=== PATIENT | female | born 1955 | race Caucasian/White ===

== ENCOUNTER 2019-04-09 09:06 | Outpatient (CLI) | payer MEDICARE, SELFPAY ==
[2019-04-09 10:10] LABS: Hematocrit 44.8 % (37.0-47.0); Hemoglobin 14.5 g/dL (12.0-15.0); Mean Corpuscular HGB Conc 32.4 g/dl (32-36); Mean Corpuscular Hemoglobin 30.5 pg (26-34); Mean Corpuscular Volume 94.1 fl (80-100); Mean Platelet Volume 10.5 fl (7.4-10.4); Platelet Count Result 283 k/mm3 (150-375); Red Blood Count 4.76 M/mm3 (4.2-5.4); Red Cell Distribution Width 13.2 % (11.5-14.5); White Blood Count 9.5 K/mm3 (4.5-10.0)
[2019-04-09 10:20] LABS: Alanine Aminotransferase 20 U/L (4-35); Albumin Level 4.4 g/dL (3.5-5.1); Alkaline Phosphatase 93 U/L (38-126); Aspartate Amino Transferase 25 U/L (14-36); Blood Urea Nitrogen 13 mg/dL (7-17); Calcium 9.4 mg/dL (8.4-10.2); Carbon Dioxide 31 mmol/L (22-30); Chloride 97 mmol/L (98-107); Cholesterol 122 mg/dL (0-200); Estimated Glomerular Filt Rate > 60; Glucose 106 mg/dL (65-105); HDL Direct 41 mg/dL; Sodium 137 mmol/L (137-145); Triglycerides 164 mg/dL (<150)
[2019-04-09 10:32] LABS: LDL Cholesterol Direct 63 mg/dL
[2019-04-09 10:35] LABS: Creatinine Urine 104.1 mg/dL
[2019-04-09 10:38] LABS: Hemoglobin A1C 6.6 % (<5.7)
[2019-04-09 10:54] LABS: MALB Creatinine Ratio < 5.8 mg/g (0-30); Microalbumin Urine Random < 6.0 mg/L (0-16.7)
== END 2019-04-09 09:07 | disposition home or self-care (01) ==
PROVIDERS: PCP Family Medicine; Visit Provider Family Medicine
DX: E11.9 Type 2 diabetes mellitus without complications (principal); E78.2 Mixed hyperlipidemia; I10 Essential (primary) hypertension
CPT/HCPCS: 36415; 80053; 80061; 82043; 83036; 85027

== ENCOUNTER 2019-07-25 10:35 | Outpatient (CLI) | payer MEDICARE, SELFPAY ==
[2019-07-25 11:52] LABS: Free T4 Free Thyroxine 1.21 ng/mL (0.78-2.19)
== END 2019-07-25 10:36 | disposition home or self-care (01) ==
LOC: ANHLAB 10:36
PROVIDERS: PCP Family Medicine; Visit Provider Family Medicine
DX: E04.9 Nontoxic goiter, unspecified (principal); E03.9 Hypothyroidism, unspecified
CPT/HCPCS: 36415; 84439; 84443

== ENCOUNTER 2020-01-09 11:31 | Outpatient (CLI) | payer MEDICARE, SELFPAY ==
[2020-01-09 12:15] LABS: Anion Gap 7 mmol/L (8-16); Blood Urea Nitrogen 11 mg/dL (7-17); Calcium 8.9 mg/dL (8.4-10.2); Carbon Dioxide 33 mmol/L (22-30); Chloride 103 mmol/L (98-107); Estimated Glomerular Filt Rate > 60; Glucose 147 mg/dL (65-105); Potassium 3.4 mmol/L (3.4-5.0); Sodium 143 mmol/L (137-145)
[2020-01-09 12:36] LABS: Hemoglobin A1C 6.1 % (<5.7)
[2020-01-09 12:54] LABS: Free T4 Free Thyroxine 1.04 ng/mL (0.78-2.19)
== END 2020-01-09 11:32 | disposition home or self-care (01) ==
PROVIDERS: PCP Family Medicine; Visit Provider Physician Assistant
DX: R73.03 Prediabetes (principal); E03.9 Hypothyroidism, unspecified; I10 Essential (primary) hypertension
CPT/HCPCS: 36415; 80048; 83036; 84439; 84443

== ENCOUNTER 2020-03-20 09:13 | Outpatient (CLI) | payer MEDICARE, SELFPAY ==
[2020-03-20 10:36] LABS: Free T4 Free Thyroxine 1.05 ng/mL (0.78-2.19)
== END 2020-03-20 09:14 | disposition home or self-care (01) ==
PROVIDERS: PCP Family Medicine; Visit Provider Family Medicine
DX: E04.9 Nontoxic goiter, unspecified (principal); E03.9 Hypothyroidism, unspecified
CPT/HCPCS: 36415; 84439; 84443

== ENCOUNTER → 2020-04-17 10:44 | Outpatient (CLI) | payer MEDICARE, SELFPAY ==
--- NOTE | ~2020-04-17 | MM_ITS ---
EXAMINATION: MM screening linh BI w [facility] HISTORY: Screening mammogram TECHNIQUE: Craniocaudal and mediolateral oblique 3-D tomosynthesis images were obtained and synthetic 2-D images were generated. CAD analysis was submitted and interpreted. COMPARISON: 08/02/2018 bilateral digital screening mammogram BREAST PARENCHYMAL COMPOSITION: There are scattered areas of fibroglandular density. FINDINGS: There is no evidence of suspicious mass, calcification, or architectural distortion to sugg est malignancy in either breast. There has been no suspicious interval change. IMPRESSION: 1. No mammographic evidence of malignancy. 2. Recommend routine screening mammography in one year. BI-RADS Category 2: Benign finding(s). Reviewed, dictated and finalized at location A. [facility]
--- NOTE | ~2020-04-17 | DEXA_ITS ---
Bone Density Report Name: Naomy Cano Age: 64 Sex: Female Ethnicity: White Date of : 1955 Indication: postmenopausal; screening for osteoporosis; height loss; hysterectomy; Referring Provider: CHELITA WAGNER Study: Bone densitometry was performed. Exam Date: April 17, 2020 Accession number: [id number] Bone Density: Region BMD T-score Z-score Classification AP Spine (L1, L2, L3) 1.256 2.2 4.0 Normal Femoral Neck (Left) 0.814 -0.3 1.3 Normal Total Hip (Left) 0.922 -0.2 1.2 Normal Femoral Neck (Right) 0.945 0.9 2.5 Normal Total Hip (Right) 0.919 -0.2 1.1 Normal Total Hip Mean 0.921 -0.2 1.2 Normal World Health Organization criteria for BMD impression classify patients as: Normal (T-score at or above -1.0), Osteopenia (T-score between -1.0 and -2.5), or Osteoporosis (T-score at or below -2.5). 10-year Fracture Risk: FRAX not reported because: All T-scores for Spine Total, Hip Total, Femoral Neck at or above -1.0 Clinical Information Provided by Patient: Has used the following medications: Calcium Has the following medical conditions: Hysterectomy Patient maximum height was 66 Menopause Age: 48 No regular weight bearing exercise Drinks caffeinated beverages Onset of menses at age 11 Number of children 1 Impression: The patient has normal bone mass. Discussion: BONE DENSITY IS ABOVE THE MINIMUM DESIRABLE LEVEL AT ALL SKELETAL SITES TESTED. This patient?s bone mineral density is above the minimum desirable level (T-score -1.0 or better) at all sites measured. The patient should follow a healthful lifestyle (good nutrition with adequate calcium and vitamin D, and appropriate weight-bearing exercise). Follow-Up: Consider repeating this study in 5 years or sooner if there is some new clinical indication. Reported by: RUI on 04/17/2020 11:24:00 AM. Reviewed, dictated and finalized at location AFarzane[facility] DELACRUZ
== END ==
PROVIDERS: PCP Family Medicine; Visit Provider Family Medicine
DX: Z12.31 Encounter for screening mammogram for malignant neoplasm of breast (principal); Z78.0 Asymptomatic menopausal state
CPT/HCPCS: 77063; 77067; 77080

== ENCOUNTER 2020-08-04 19:43 | Emergency (ER) | payer MEDICARE, SELFPAY ==
[2020-08-04 19:47] VITALS: BP 136/75; PULSE 88; RESP 20; TEMP 36.4; O2SAT 98
--- NOTE | 2020-08-04 20:35 | ED.ALLEREA ---
HPI - Allergic Reaction General Chief complaint: Allergic Reaction Stated complaint: swelling throat Time Seen by Provider: 08/04/20 20:31 Source: patient Mode of arrival: ambulatory Limitations: no limitations History of Present Illness HPI narrative: Patient is a 65-year-old female complaining of I think my throat swelling that started about an hour prior to arrival. Patient states that she was at a winery prior, ate some toast ravioli and had 1 beer. Patient denies any food bolus obstruction. Patient states that she was able to eat and swallow without difficulty. Denies lip, tongue, or facial swelling. Patient denies any shortness of breath. Patient denies any new medications, food, or hygienic products. Denies any rash or extremity swelling. Denies any similar events in the past. Related Data Home Medications Medication Instructions Recorded Confirmed aspirin 81 mg tablet,delayed 81 mg PO DAILY 04/10/19 07/16/20 release calcium carbonate 600 mg calcium 600 mg PO BID 04/10/19 07/16/20 (1,500 mg) tablet iodine 150 mcg tablet mcg PO 04/10/19 07/16/20 risedronate 35 mg tablet 35 mg PO WEEKLY 04/10/19 07/16/20 Allergies Allergy/AdvReac Type Severity Reaction Status Date / Time Iodinated Contrast Media Allergy Severe Hives, RED Verified 08/04/20 20:52 FACE Review of Systems Review of Systems: All systems reviewed & are unremarkable except as noted in HPI and below Constitutional: Constitutional: Denies body ache(s), Denies chills, Denies excessive sweating, Denies fatigue, Denies fever(s), Denies headache(s), Denies lethargy, Denies malaise, Denies weakness and Denies weight loss Eyes: Eyes: Denies blurry vision, Denies change in vision and Denies loss of vision ENT: Denies dizziness, Denies ear discharge, Denies headache(s), Denies lip swelling, Denies epistaxis, Denies nasal congestion, Denies neck pain and Denies tongue swelling Cardiovascular: Cardiovascular: Denies chest pain, Denies chest pain at rest, Denies chest pain with activity, Denies diaphoresis, Denies rapid heart rate, Denies edema, Denies irregular heart rhythm, Denies lightheadedness, Denies palpitations, Denies dyspnea and Denies dyspnea on exertion Respiratory: Respiratory: Denies chest congestion, Denies cough, Denies hemoptysis, Denies dyspnea and Denies dyspnea on exertion Gastrointestinal: Gastrointestinal: Denies abdominal pain, Denies melena, Denies hematochezia, Denies diarrhea, Denies nausea, Denies vomiting and Denies hematemesis Musculoskeletal: Musculoskeletal: Denies abnormal gait, Denies deformity, Denies joint swelling, Denies limited range of motion, Denies neck pain and Denies numbness Neurologic: Denies Abnormal speech present, Denies abnormal gait, Denies confusion, Denies dizziness, Denies headache(s), Denies focal weakness, Denies loss of vision, Denies numbness, Denies Other visual disturbances, Denies Sensory deficit (Neuro) and Denies weakness Psychiatric: Psychiatric: Denies confusion, Denies depression, Denies auditory hallucinations, Denies homicidal ideation and Denies suicidal ideation Endocrine: Endocrine: Denies cold intolerance, Denies excessive sweating, Denies fatigue, Denies heat intolerance and Denies palpitations Hematologic/Lymphatic: Hematologic/Lymphatic: Denies easy bleeding and Denies easy bruising Allergic/Immunologic: Allergic/Immunologic: Denies lip swelling, Denies throat swelling and Denies tongue swelling PMFSH Past Medical History Medical History Benign hypertension Borderline diabetes mellitus BALDO (generalized anxiety disorder) Hypothyroidism (acquired) Mixed hyperlipidemia Family History Family History Father Diabetes mellitus Other Family history of malignant neoplasm Hypertension Social History Social History (Reviewed 08/04/20 @ 20:37 by Aleks Mendoza
[2020-08-04] MEDS: diphenhydrAMINE HCl INJ 50 MG/ML VIAL 25 MG IV PUSH (21:24)
[2020-08-04] MEDS: methylPREDNISolone SOD SUCC 125 MG VIAL IV PUSH (21:24)
[2020-08-04] MEDS: FAMOTIDINE 20 MG/2 ML VIAL IV PUSH (21:24)
[2020-08-04 21:25] VITALS: BP 102/83; PULSE 70; RESP 18; O2SAT 95
[2020-08-05 00:03] VITALS: BP 109/59; PULSE 72; RESP 18; O2SAT 96
== END 2020-08-05 00:26 | disposition home or self-care (01) ==
PROVIDERS: Emergency Provider Emergency Medicine; PCP Family Medicine
DX: T78.40XA Allergy, unspecified, initial encounter (principal); I10 Essential (primary) hypertension; R73.03 Prediabetes; E03.9 Hypothyroidism, unspecified; E78.2 Mixed hyperlipidemia; F41.1 Generalized anxiety disorder; Z79.82 Long term (current) use of aspirin
CPT/HCPCS: 96374; 96375; 99284; J1200; J2930

== ENCOUNTER 2020-08-08 07:01 | Outpatient (CLI) | payer MEDICARE, SELFPAY ==
[2020-08-08 07:42] LABS: Basophils Percent Auto 0.4 % (0.2-1.2); Eosinophils Absolute Auto 0.1 K/mm3 (0-0.3); Eosinophils Percent Auto 0.5 % (0-4.4); Hematocrit 47.1 % (37.0-47.0); Hemoglobin 15.4 g/dL (12.0-15.0); Immature Granulocyte Absolute 0.03 K/mm3 (0.00-0.031); Immature Granulocyte Percent A 0.3 % (0-0.5); Lymphocytes Absolute Auto 2.84 K/mm3 (0.9-3.2); Lymphocytes Percent Auto 30.1 % (18.3-44.2); Mean Corpuscular HGB Conc 32.7 g/dl (32-36); Mean Corpuscular Volume 91.6 fl (80-100); Mean Platelet Volume 9.8 fl (7.4-10.4); Monocytes Absolute Auto 0.8 K/mm3 (0.1-0.6); Monocytes Percent Auto 8.5 % (2.6-8.5); Neutrophils Absolute Auto 5.7 K/mm3 (1.3-6.7); Neutrophils Percent Auto 60.2 % (45.5-73.1); Platelet Count Result 279 k/mm3 (150-375); Red Blood Count 5.14 M/mm3 (4.2-5.4); Red Cell Distribution Width 14.2 % (11.5-14.5); White Blood Count 9.4 K/mm3 (4.5-10.0)
[2020-08-08 07:50] LABS: Hemoglobin A1C 5.7 % (<5.7)
[2020-08-08 07:57] LABS: Alanine Aminotransferase 21 U/L (4-35); Albumin Level 4.3 g/dL (3.5-5.1); Alkaline Phosphatase 82 U/L (38-126); Anion Gap 12 mmol/L (8-16); Aspartate Amino Transferase 29 U/L (14-36); Bilirubin,Total 1.7 mg/dL (0.2-1.3); Blood Urea Nitrogen 14 mg/dL (7-17); Calcium 9.4 mg/dL (8.4-10.2); Carbon Dioxide 31 mmol/L (22-30); Chloride 97 mmol/L (98-107); Cholesterol 122 mg/dL (0-200); Estimated Glomerular Filt Rate 50; Glucose 127 mg/dL (65-105); HDL Direct 44 mg/dL; Potassium 2.7 mmol/L (3.4-5.0); Sodium 140 mmol/L (137-145); Triglycerides 168 mg/dL (<150)
[2020-08-08 08:02] LABS: LDL Cholesterol Direct 42 mg/dL
== END 2020-08-08 07:02 | disposition home or self-care (01) ==
PROVIDERS: PCP Family Medicine; Visit Provider Physician Assistant
DX: R73.03 Prediabetes (principal); E03.9 Hypothyroidism, unspecified; E78.2 Mixed hyperlipidemia; I10 Essential (primary) hypertension
CPT/HCPCS: 36415; 80053; 80061; 83036; 84439; 84443; 85025

== ENCOUNTER 2020-10-02 01:14 | Day surgery (SDC) | payer MEDICARE, SELFPAY ==
[2020-09-17 14:37] VITALS: BMI 29.9
[2020-10-02 10:24] VITALS: BP 156/75; PULSE 87; RESP 18; TEMP 36.5; O2SAT 97; BMI 29.5
[2020-10-02] MEDS: LACTATED RINGERS 1,000 ML 30 ML IV CONT (10:46)
--- NOTE | 2020-10-02 10:47 | WPDANESEPPF ---
Anes - Initial Pre Proc Eval Procedure: Operation Date: 10/02/20 11:00 Proposed Procedures p Esophagogastroduodenoscopy - Brando Waldron MD Date/Time: 10/02/20 10:47 Surgeon: Brando Waldron MD Pre Op Diagnosis: dysphagia Patient Data Age: 65 Gender: F Height: 1.63 m Weight: 78.2 kg Last Vital Signs Temp 36.5 C 10/02/20 10:24 Pulse 87 10/02/20 10:24 Resp 18 10/02/20 10:24 BP 156/75 H 10/02/20 10:24 Pulse Ox 97 10/02/20 10:24 Allergies Allergy/AdvReac Type Severity Reaction Status Date / Time Iodinated Contrast Media Allergy Severe Hives, RED Verified 10/02/20 10:37 FACE Home Medications Medication Instructions Recorded Confirmed Type aspirin 81 mg tablet,delayed 81 mg PO DAILY 04/10/19 09/17/20 History release iodine 150 mcg tablet 150 mcg PO DAILY 04/10/19 09/17/20 History levothyroxine 100 mcg tablet 100 mcg PO DAILY #102 tablet 06/23/20 09/17/20 Rx esomeprazole magnesium 20 mg 20 mg PO DAILY #90 cap 06/27/20 09/17/20 Rx capsule,delayed release alprazolam 0.25 mg tablet 0.25 mg PO BID PRN #60 tablet 07/16/20 09/17/20 Rx bupropion HCl 200 mg tablet,12 hr 200 mg PO BID #60 tablet 07/16/20 09/17/20 Rx sustained-release lisinopril 20 mg tablet 20 mg PO DAILY #90 tablet 07/24/20 09/17/20 Rx atorvastatin 20 mg tablet 20 mg PO DAILY #90 tablet 08/02/20 09/17/20 Rx metformin 500 mg tablet 500 mg PO BID #180 tablet 08/02/20 09/17/20 Rx famotidine [Pepcid] 20 mg PO BID #10 tablet 08/04/20 09/17/20 Rx hydrochlorothiazide 25 mg tablet 25 mg PO DAILY #90 tablet 09/05/20 09/17/20 Rx potassium chloride 20 mEq 20 meq PO BID #60 tablet 09/09/20 09/17/20 Rx tablet,extended release Patient hx anesthesia problems: none Family hx anesthesia problems: none PMFSH Past Medical History Medical History Benign hypertension Borderline diabetes mellitus BALDO (generalized anxiety disorder) Hypothyroidism (acquired) Mixed hyperlipidemia Surgical History Surgical History History of abdominoplasty History of appendectomy History of cholecystectomy History of hysterectomy History of tubal ligation Family History Family History Father Diabetes mellitus Other Family history of malignant neoplasm Hypertension Social History Social History Social History: Smoking packs per day: 0.5 Smoking cigarettes per day: 10.0 Years smoked: 10 Smoking pack-years: 5.00 Smoking status: Former smoker Tobacco type: cigarettes Second hand tobacco smoke exposure: No Smoking end date: 03/07/13 Alcohol intake: current Drinks per week: 1 Alcohol use details: Twice a month Substance use: never Substance use type: does not use Living arrangements: alone Gender identity (if verbalized by the patient): Female Spiritual care concerns: No Anes - Eval Final PreProcedure Day of Procedure 10/02/20 10:47 Patient weight: overweight Heart: regular rate and rhythm Lungs: clear to auscultation Airway: Mallampati scale class II Neurological: alert and oriented Last oral intake: >/= 8 hours ASA classification: III Emergent: no Anesthetic plan: proceed Anesthesia type and monitoring: general GIVS and standard monitoring Informed Consent: The patient's anesthetic plan and its attendant risks and benefits were discussed with the patient/family/POA. Questions were solicited and answers provided to the satisfaction of the patient/family/POA.
[2020-10-02 10:48] LABS: Glucose Point of Care 93 mg/dl (65-105)
--- NOTE | 2020-10-02 10:53 | WPDGICN ---
Assessment and Plan Assessment and plan (1) Dysphagia: Code(s): R13.10 - Dysphagia, unspecified Status: Acute Assessment and Plan: patient had episode of difficulty swallowing for which she was seen in the emergency room. She was treated for an allergic reaction. Other etiologies for difficulty swallowing cannot be excluded. Although patient has had no problems prior or since. She reports having been treated for acid reflux with Nexium for about 5 years. Plan is for EGD to assess more thoroughly. Further recommendations will be given after endoscopy. GI Consult Note Consult date/time: 10/02/20 10:53 HPI: Naomy Cano is a 65 year old female Presents for EGD. Patient reports an episode where she abruptly was unable to eat or swallow. For this reason she presented the emergency room it was presumed she had an allergic reaction and was treated with steroids. She did improving has been able to eat swallow subsequently. She reports having had acid reflux for 5 years. She has been treated with Nexium for that period of time. She has had no prior difficulty swallowing. She has had no weight loss. She has no bleeding. During her episode of difficulty swallowing she was not eating. She did not even try to eat. She was able to swallow her saliva. She is referred today for EGD to exclude esophageal narrowing. Review of Systems Review of Systems: All systems reviewed & are unremarkable except as noted in HPI and below PMFSH Past Medical History Medical History Benign hypertension Borderline diabetes mellitus BALDO (generalized anxiety disorder) Hypothyroidism (acquired) Mixed hyperlipidemia Surgical History Surgical History History of abdominoplasty History of appendectomy History of cholecystectomy History of hysterectomy History of tubal ligation Family History Family History Father Diabetes mellitus Other Family history of malignant neoplasm Hypertension Social History Social History Social History: Smoking packs per day: 0.5 Smoking cigarettes per day: 10.0 Years smoked: 10 Smoking pack-years: 5.00 Smoking status: Former smoker Tobacco type: cigarettes Second hand tobacco smoke exposure: No Smoking end date: 03/07/13 Alcohol intake: current Drinks per week: 1 Alcohol use details: Twice a month Substance use: never Substance use type: does not use Living arrangements: alone Gender identity (if verbalized by the patient): Female Spiritual care concerns: No Meds Home Medications and Allergies Home Medications Medication Instructions Recorded Confirmed Type aspirin 81 mg tablet,delayed 81 mg PO DAILY 04/10/19 10/02/20 History release iodine 150 mcg tablet 150 mcg PO DAILY 04/10/19 10/02/20 History levothyroxine 100 mcg tablet 100 mcg PO DAILY #102 tablet 06/23/20 10/02/20 Rx esomeprazole magnesium 20 mg 20 mg PO DAILY #90 cap 06/27/20 10/02/20 Rx capsule,delayed release alprazolam 0.25 mg tablet 0.25 mg PO BID PRN #60 tablet 07/16/20 10/02/20 Rx bupropion HCl 200 mg tablet,12 hr 200 mg PO BID #60 tablet 07/16/20 10/02/20 Rx sustained-release lisinopril 20 mg tablet 20 mg PO DAILY #90 tablet 07/24/20 10/02/20 Rx atorvastatin 20 mg tablet 20 mg PO DAILY #90 tablet 08/02/20 10/02/20 Rx metformin 500 mg tablet 500 mg PO BID #180 tablet 08/02/20 10/02/20 Rx famotidine [Pepcid] 20 mg PO BID #10 tablet 08/04/20 10/02/20 Rx hydrochlorothiazide 25 mg tablet 25 mg PO DAILY #90 tablet 09/05/20 10/02/20 Rx potassium chloride 20 mEq 20 meq PO BID #60 tablet 09/09/20 10/02/20 Rx tablet,extended release Allergies Allergy/AdvReac Type Severity Reaction Status Date / Time Iodinated Contrast Media Allergy Sever
[2020-10-02 11:07] VITALS: BP 124/70; PULSE 73; RESP 18; O2SAT 98
[2020-10-02 11:17] VITALS: BP 139/73; PULSE 70; RESP 18; O2SAT 99
[2020-10-02 11:27] VITALS: BP 106/73; PULSE 72; RESP 18; O2SAT 100
== END 2020-10-02 11:44 | disposition home or self-care (01) ==
PROVIDERS: PCP Family Medicine; Visit Provider Internal Medicine Gastroenterology
PROC: 0DJ08ZZ Inspection of Upper Intestinal Tract, Via Natural or Artificial Opening Endoscopic (ICD-10-PCS; CPT 43235; principal; 2020-10-02 11:00)
DX: R13.10 Dysphagia, unspecified (principal); K21.9 Gastro-esophageal reflux disease without esophagitis; I10 Essential (primary) hypertension; E03.9 Hypothyroidism, unspecified; R73.03 Prediabetes; E78.2 Mixed hyperlipidemia; F41.1 Generalized anxiety disorder; Z87.891 Personal history of nicotine dependence; Z79.82 Long term (current) use of aspirin; Z79.84 Long term (current) use of oral hypoglycemic drugs
CPT/HCPCS: 43235; 82948; J7120

== ENCOUNTER 2020-10-16 11:18 | Outpatient (CLI) | payer MEDICARE, SELFPAY ==
[2020-10-16 13:34] LABS: Anion Gap 11 mmol/L (8-16); Blood Urea Nitrogen 14 mg/dL (7-17); Calcium 9.5 mg/dL (8.4-10.2); Carbon Dioxide 28 mmol/L (22-30); Chloride 103 mmol/L (98-107); Estimated Glomerular Filt Rate 50; Glucose 117 mg/dL (65-110); Potassium 3.8 mmol/L (3.4-5.0); Sodium 142 mmol/L (137-145)
== END 2020-10-16 11:19 | disposition home or self-care (01) ==
LOC: ANHLAB 11:20
PROVIDERS: PCP Family Medicine; Visit Provider Physician Assistant
DX: E87.6 Hypokalemia (principal)
CPT/HCPCS: 36415; 80048

== ENCOUNTER 2021-01-04 10:15 | Emergency (ER) | payer MEDICARE, SELFPAY ==
[2021-01-04 10:27] VITALS: BP 115/72; PULSE 99; RESP 18; TEMP 37.1; O2SAT 100
--- NOTE | 2021-01-04 10:49 | ED.EYEPROB ---
HPI - Eye Problem General Chief complaint: Eye Problems Stated complaint: Eye pain Source: patient and RN notes reviewed Limitations: no limitations History of Present Illness HPI Narrative: The patient, who wears eyeglasses and not contacts, presents with eye discomfort. Patient states she has 1 day history of left eye redness and discharge after poking it with a mascara pencil yesterday. No photophobia, foreign body, purulent discharge.; Symptoms are mild, most noticeable with rubbing or blinking. Vital signs are stable with acuity VA 20/50;patient advised follow-up with eye doctor if not improved Related Data Home Medications Medication Instructions Recorded Confirmed aspirin 81 mg tablet,delayed 81 mg PO DAILY 04/10/19 01/04/21 release iodine 150 mcg tablet 150 mcg PO DAILY 04/10/19 01/04/21 Allergies Allergy/AdvReac Type Severity Reaction Status Date / Time Iodinated Contrast Media Allergy Severe Hives, RED Verified 01/04/21 10:34 FACE Review of Systems Review of Systems: General/Constitutional: No weight loss,fever Eyes: REPORTS redness,discharge Ears/Nose/Throat: No: Epistaxis,ear discharge Respiratory: Denies: Hemoptysis Gastrointestinal: No Vomiting, Bleeding-rectal Skin: No Lumps, eruption Neurologic: No Focal Weakness,Sz Hematologic: Denies: Petechiae/Purpura Psychiatric: No: Suicida ideationl All Other Systems: Reviewed and Negative [facility] Past Medical History Medical History Benign hypertension Borderline diabetes mellitus BALDO (generalized anxiety disorder) Hypothyroidism (acquired) Mixed hyperlipidemia Surgical History Surgical History History of abdominoplasty History of appendectomy History of cholecystectomy History of hysterectomy History of tubal ligation Family History Family History Father Diabetes mellitus Other Family history of malignant neoplasm Hypertension Social History Social History (Updated 10/30/20 @ 10:14 by Albina Hussein) Social History: Smoking packs per day: 0.5 Smoking cigarettes per day: 10.0 Years smoked: 10 Smoking pack-years: 5.00 Smoking status: Former smoker Tobacco type: cigarettes Second hand tobacco smoke exposure: No Smoking end date: 03/07/13 Alcohol intake: current Drinks per week: 1 Alcohol use details: Twice a month Substance use: never Substance use type: does not use Gender identity (if verbalized by the patient): Female Sexual Orientation (if Verbalized by the Patient): Straight or Heterosexual Spiritual care concerns: No Comments At time of signature, agree with nursing past medical, surgical, social and family history. There is no relevant family history pertinent to the presenting complaint Exam Narrative: General Appearance: Well appearing, Well nourished, No distress EYE: PERRLA, [id number] normal, EOMI, Lens normal, Normal corneas; small fluorescein uptake 9 o'clock, anterior chamber deep, Conjunctiva injection, no FB seen Ears: External ear normal, Auditory canal normal Nose: Normal nose, Nares clear Mouth/Throat: Normal appearing, Normal lips, Supple, No adenopathy Respiratory: Airway patent, No respiratory distress Skin: Warm, Dry Neurological: A&O x3, CN II-X intact Psychiatric: Normal mood, Normal affect Course Vital Signs Vital signs: Vital Signs Temperature 98.7 F 01/04/21 10:27 Pulse Rate 99 01/04/21 10:27 Respiratory Rate 18 01/04/21 10:27 Blood Pressure 115/72 01/04/21 10:27 Pulse Oximetry 100 01/04/21 10:27 Temperature 98.7 F 01/04/21 10:27 Pulse Rate 99 01/04/21 10:27 Respiratory Rate 18 01/04/21 10:27 Blood Pressure 115/72 01/04/21 10:27 Pulse Oximetry 100 01/04/21 10:27 Discharge Plan Discharge Clinical Impression:
== END 2021-01-04 11:02 | disposition home or self-care (01) ==
PROVIDERS: Emergency Provider Emergency Medicine; PCP Family Medicine
DX: S05.02XA Injury of conjunctiva and corneal abrasion without foreign body, left eye, initial encounter (principal); W22.8XXA Striking against or struck by other objects, initial encounter; I10 Essential (primary) hypertension; E03.9 Hypothyroidism, unspecified; E78.2 Mixed hyperlipidemia; Z79.82 Long term (current) use of aspirin; R73.03 Prediabetes; F41.1 Generalized anxiety disorder
CPT/HCPCS: 99213; A9270; G0463

== ENCOUNTER 2021-05-05 07:14 | Outpatient (CLI) | payer MEDICARE, SELFPAY ==
[2021-05-05 07:51] LABS: Basophils Percent Auto 0.5 % (0.2-1.2); Eosinophils Absolute Auto 0.1 K/mm3 (0-0.3); Eosinophils Percent Auto 1.2 % (0-4.4); Hematocrit 45.1 % (37.0-47.0); Hemoglobin 14.8 g/dL (12.0-15.0); Immature Granulocyte Absolute 0.02 K/mm3 (0.00-0.031); Immature Granulocyte Percent A 0.2 % (0-0.5); Lymphocytes Absolute Auto 2.72 K/mm3 (0.9-3.2); Lymphocytes Percent Auto 31.8 % (18.3-44.2); Mean Corpuscular HGB Conc 32.8 g/dl (32-36); Mean Corpuscular Hemoglobin 30.8 pg (26-34); Mean Platelet Volume 9.9 fl (7.4-10.4); Monocytes Absolute Auto 0.6 K/mm3 (0.1-0.6); Neutrophils Absolute Auto 5.1 K/mm3 (1.3-6.7); Neutrophils Percent Auto 59.3 % (45.5-73.1); Platelet Count Result 257 k/mm3 (150-375); Red Cell Distribution Width 12.3 % (11.5-14.5); White Blood Count 8.6 K/mm3 (4.5-10.0)
[2021-05-05 08:13] LABS: Alanine Aminotransferase 15 U/L (4-35); Albumin Level 4.4 g/dL (3.5-5.1); Alkaline Phosphatase 91 U/L (38-126); Anion Gap 7 mmol/L (8-16); Aspartate Amino Transferase 22 U/L (14-36); Bilirubin,Total 0.7 mg/dL (0.2-1.3); Blood Urea Nitrogen 11 mg/dL (7-17); Carbon Dioxide 29 mmol/L (22-30); Chloride 101 mmol/L (98-107); Cholesterol 132 mg/dL (0-200); Estimated Glomerular Filt Rate 55; Glucose 97 mg/dL (65-110); HDL Direct 48 mg/dL; Potassium 3.8 mmol/L (3.4-5.0); Sodium 137 mmol/L (137-145); Triglycerides 111 mg/dL (<150)
[2021-05-05 08:40] LABS: Free T4 Free Thyroxine 1.36 ng/mL (0.78-2.19)
[2021-05-05 08:41] LABS: Hemoglobin A1C 5.4 % (<5.7)
[2021-05-05 08:54] LABS: LDL Cholesterol Direct 57 mg/dL; Thyroid Stimulating Hormone 0.924 uIU/mL (0.465-4.680); Total Triiodothyronine (T3) 1.17 NG/ML (0.97-1.69)
== END 2021-05-05 07:15 | disposition home or self-care (01) ==
PROVIDERS: PCP Family Medicine; Visit Provider Nurse Practitioner Gerontology
DX: E03.9 Hypothyroidism, unspecified (principal); R73.03 Prediabetes; E78.2 Mixed hyperlipidemia; I10 Essential (primary) hypertension
CPT/HCPCS: 36415; 80053; 80061; 83036; 84439; 84443; 84480; 85025

== ENCOUNTER → 2021-06-17 11:16 | Outpatient (CLI) | payer MEDICARE, SELFPAY ==
--- NOTE | ~2021-06-17 | MM_ITS ---
EXAMINATION: MM screening linh BI w [facility] HISTORY: Screening mammogram TECHNIQUE: Craniocaudal and mediolateral oblique 3-D tomosynthesis images were obtained and synthetic 2-D images were generated. CAD analysis was submitted and interpreted. COMPARISON: 04/17/2020, 08/02/2018 bilateral screening mammogram examinations BREAST PARENCHYMAL COMPOSITION: There are scattered areas of fibroglandular density. FINDINGS: Scattered bilateral benign calcifications are again present. There is no evidence of suspic ious mass, calcification, or architectural distortion to suggest malignancy in either breast. There h as been no suspicious interval change. IMPRESSION: 1. No mammographic evidence of malignancy. 2. Recommend routine screening mammography in one year. BI-RADS Category 2: Benign finding(s). Reviewed, dictated and finalized at location A.
== END ==
PROVIDERS: PCP Family Medicine; Visit Provider Family Medicine
DX: Z12.31 Encounter for screening mammogram for malignant neoplasm of breast (principal)
CPT/HCPCS: 77063; 77067

== ENCOUNTER 2021-07-01 15:37 | Emergency (ER) | payer MEDICARE, SELFPAY ==
--- NOTE | ~2021-07-01 | CT_ITS ---
EXAMINATION: CT abdomen pelvis wo con DATE: 07/01/2021 17:55 INDICATION: Diffuse abdominal pain, diaphoresis TECHNIQUE: Computed tomography (CT) of the abdomen and pelvis was performed without intravenous contr ast. The dose-length product (DLP) was 603.93 mGy-cm. Automated exposure control and iterative recons truction technique were employed. COMPARISON: 08/08/2018 FINDINGS: The lung bases are clear. The heart size is normal. The liver, spleen, pancreas, and adrena l glands are normal. The gallbladder is absent. The kidneys are unremarkable. There is calcified athe rosclerosis of the aorta and many of the other arteries. No pathologically enlarged abdominal or pelv ic lymph nodes are identified. There is no free intraperitoneal gas or evidence of bowel obstruction. Colonic diverticulosis is present without evidence of diverticulitis. There is severe lumbar spondyl osis. A fat-containing umbilical hernia is noted. IMPRESSION: 1. No CT correlate for the patient's symptoms. Reviewed, dictated and finalized at location F.
[2021-07-01 15:46] VITALS: BP 136/112; PULSE 80; RESP 17; TEMP 36.4; O2SAT 98
[2021-07-01 16:01] LABS: Basophils Percent Auto 0.3 % (0.2-1.2); Eosinophils Absolute Auto 0.1 K/mm3 (0-0.3); Eosinophils Percent Auto 0.7 % (0-4.4); Hematocrit 43.7 % (37.0-47.0); Hemoglobin 14.2 g/dL (12.0-15.0); Immature Granulocyte Absolute 0.02 K/mm3 (0.00-0.031); Immature Granulocyte Percent A 0.2 % (0-0.5); Lymphocytes Absolute Auto 2.66 K/mm3 (0.9-3.2); Lymphocytes Percent Auto 30.6 % (18.3-44.2); Mean Corpuscular HGB Conc 32.5 g/dl (32-36); Mean Corpuscular Hemoglobin 31.1 pg (26-34); Mean Corpuscular Volume 95.6 fl (80-100); Mean Platelet Volume 9.7 fl (7.4-10.4); Monocytes Absolute Auto 0.7 K/mm3 (0.1-0.6); Monocytes Percent Auto 8.5 % (2.6-8.5); Neutrophils Absolute Auto 5.2 K/mm3 (1.3-6.7); Neutrophils Percent Auto 59.7 % (45.5-73.1); Platelet Count Result 282 k/mm3 (150-375); Red Blood Count 4.57 M/mm3 (4.2-5.4); Red Cell Distribution Width 13.5 % (11.5-14.5); White Blood Count 8.7 K/mm3 (4.5-10.0)
[2021-07-01 16:15] LABS: Alanine Aminotransferase 33 U/L (4-35); Albumin Level 4.4 g/dL (3.5-5.1); Alkaline Phosphatase 107 U/L (38-126); Anion Gap 8 mmol/L (8-16); Aspartate Amino Transferase 111 U/L (14-36); Bilirubin,Total 0.9 mg/dL (0.2-1.3); Blood Urea Nitrogen 13 mg/dL (7-17); Calcium 8.6 mg/dL (8.4-10.2); Carbon Dioxide 35 mmol/L (22-30); Chloride 97 mmol/L (98-107); Estimated CRCL calculation 47 ml/min; Estimated Glomerular Filt Rate 55; Glucose 107 mg/dL (65-110); Lipase 75 U/L (23-300); Sodium 140 mmol/L (137-145)
--- NOTE | 2021-07-01 17:13 | PC.NURSE ---
pt denies any pain at present. denies n/v/d
[2021-07-01 17:14] VITALS: BP 154/75; PULSE 77; RESP 16; O2SAT 98
[2021-07-01 17:46] LABS: Add Urine Microscopic? YES; Appearance Urine Cloudy (Clear); Bacteria Urine Trace /hpf; Bilirubin Urine Negative (Negative); Blood Urine Negative (Negative); Color Urine Yellow (Yellow); Glucose Urine UA Negative (Negative); Ketones Urine Negative (Negative); Leukocyte Esterase Ur Trace LEU/UL (Negative); Mucus Urine Rare /lpf; Nitrate Urine Negative (Negative); Protein Urine Negative (Negative); RBC Urine 0-2 /hpf (0-2); Specific Grav Ur 1.018 (1.001-1.035); Squamous Epithelial Cell Urine Many /hpf (Few)
--- NOTE | 2021-07-01 19:00 | PC.NURSE ---
assumed care of pt. at this time. report from MEY marquez
--- NOTE | 2021-07-01 19:48 | ED.ABDPAIN ---
HPI - Abdominal Pain General Chief Complaint: Abdominal Pain Stated Complaint: abd pain Time Seen by Provider: 07/01/21 17:29 History of Present Illness HPI narrative: Patient is a 65-year-old female who presents ER with lower abdominal pain. Intermittent over the last couple months but sudden increase this evening. Worse with pressure. Has history of diverticulitis this feels slightly different. No fevers or chills or sweats. Normal stool and urine function. No alleviating factors. Related Data Home Medications Medication Instructions Recorded Confirmed aspirin 81 mg tablet,delayed 81 mg PO DAILY 04/10/19 05/14/21 release iodine 150 mcg tablet 150 mcg PO DAILY 04/10/19 05/14/21 Allergies Allergy/AdvReac Type Severity Reaction Status Date / Time Iodinated Contrast Media Allergy Severe Hives, RED Verified 07/01/21 17:13 FACE Review of Systems Review of Systems: All systems reviewed & are unremarkable except as noted in HPI and below Constitutional: Constitutional: Denies chills, Denies fever(s) and Denies weakness ENT: Denies nasal congestion and Denies sore throat Cardiovascular: Cardiovascular: Denies chest pain, Denies rapid heart rate and Denies radiating jaw, neck or arm pain Respiratory: Respiratory: Denies cough, Denies dyspnea and Denies wheezing Gastrointestinal: Gastrointestinal: Reports abdominal pain, Denies nausea and Denies vomiting Genitourinary: Genitourinary: Denies nocturia, Denies dysuria and Denies flank pain PMFSH Past Medical History Medical History Benign hypertension Borderline diabetes mellitus BALDO (generalized anxiety disorder) Hypothyroidism (acquired) Mixed hyperlipidemia Surgical History Surgical History History of abdominoplasty History of appendectomy History of cholecystectomy History of hysterectomy History of tubal ligation Family History Family History Father Diabetes mellitus Other Family history of malignant neoplasm Hypertension Social History Social History (Updated 05/14/21 @ 10:07 by Albina Hussein) Social History: Smoking packs per day: 0.5 Smoking cigarettes per day: 10.0 Years smoked: 10 Smoking pack-years: 5.00 Smoking status: Former smoker Tobacco type: cigarettes Second hand tobacco smoke exposure: No Smoking end date: 03/07/13 Alcohol intake: current Alcohol use details: Twice a month Substance use: never Substance use type: does not use 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 HEAD: Normocephalic, atraumatic. EYES: PERRL and EOMI. NECK: Supple. CHEST: Clear to auscultation. No respiratory distress. HEART: Regular rate and rhythm. Normal peripheral pulses. ABDOMEN: Soft, tender palpation bilateral lower quadrants without guarding or rebound, nondistended. EXTREMITIES: Normal range of motion. No edema. SKIN: Warm, dry, no rash. NEURO: Alert and oriented x3. PSYCH: Normal mood and affect. Course Course Emergency Course: Patient informed of results. Discharge home. Vital Signs Vital signs: Vital Signs Temperature 97.6 F 07/01/21 15:46 Pulse Rate 80 07/01/21 15:46 Respiratory Rate 17 07/01/21 15:46 Blood Pressure 136/112 H 07/01/21 15:46 Pulse Oximetry 98 07/01/21 15:46 Temperature 97.6 F 07/01/21 15:46 Pulse Rate 77 07/01/21 17:14 Respiratory Rate 16 07/01/21 17:14 Blood Pressure 154/75 H 07/01/21 17:14 Pulse Oximetry 98 07/01/21 17:14 MDM - Abdominal Pain Lab Data Result diagrams: 07/01/21 15:54
[2021-07-01 19:51] VITALS: BP 119/62; PULSE 73; RESP 18; TEMP 36.6; O2SAT 98
== END 2021-07-01 20:00 | disposition home or self-care (01) ==
PROVIDERS: Emergency Medicine; Emergency Provider Emergency Medicine; PCP Family Medicine
DX: R10.30 Lower abdominal pain, unspecified (principal); I10 Essential (primary) hypertension; R73.03 Prediabetes; E03.9 Hypothyroidism, unspecified; E78.2 Mixed hyperlipidemia; F41.1 Generalized anxiety disorder; Z87.891 Personal history of nicotine dependence; Z79.82 Long term (current) use of aspirin; Z79.84 Long term (current) use of oral hypoglycemic drugs
CPT/HCPCS: 36415; 74176; 80053; 81001; 83690; 85025; 99284

== ENCOUNTER 2021-08-12 00:11 | Day surgery (SDC) | payer MEDICARE, SELFPAY ==
--- NOTE | 2021-07-30 14:05 | PC.NURSE ---
Report to the Outpatient Waiting Room, entrance under the green pavilion located off [facility], at time __0900 on date _08/12/21 . OR Time: __1100 . - You and your visitor will be asked a series of questions to screen for COVID 19 for your protection. - Only one visitor is allowed at this time. - The patient visitor is requested to leave or wait in car when not with patient. - A mask is required within the hospital. Patients may have clear liquids (water, carbonated beverages, clear teas, apple juice) until 3 hours prior to surgery with a maximum of 20 ounces. - No food from midnight until time of surgery - Infants may have breast milk until 4 hours before surgery, infant formula 6 hours prior to surgery. - Children will be allowed to drink immediately following surgery. If applicable, please bring a bottle or sippy cup to assist with drinking. Juice, water, soda, and popsicles are readily available. For infants on formula, please bring formula the day of surgery. Pacifiers are allowed. Take the following medications with a SIP of water the morning of surgery: __BUPROPION,LEVOTHYROXINE Medications to discontinue per physician NONE Date to take last dose Please no make-up, nail armenian, hairspray, perfume, deodorant, or body powder the day of surgery. No jewelry (including any body piercings) or valuables the day of surgery, leave them at home. Please take a shower or bath the night before, or the morning of, surgery with an antibacterial soap. Wear comfortable, loose fitting clothing. Children are encouraged to wear pajamas. - Jewelry must be removed prior to entering the operating room. Rings and piercings that are not removed may be cut off. - The hospital will not accept responsibility for valuables. - Please leave all valuables, including medications, at home the day of surgery. [employer]IB[employer] SHOWER MORNING OF SURGERY If you are going home after surgery, a licensed bookmobile driver must drive you home. - NO public transportation without another adult. - We recommend that an adult stay with you for 24 hours following discharge. - We also recommend that you do not drive, make important decision, drink alcoholic beverages, or take any drugs that were not prescribed by your health care provider for at least 24 hours after your discharge time. For Pediatric surgeries, we recommend two adults accompany the child home (only one inside the building at this time). Follow any additional instructions given to you from your surgeon. If you or anyone in your household have experienced Covid symptoms in the past week, please notify your surgeon or the nurse liaison at the phone number below for possible testing. Telephone instructions given to _PATIENT and asked if any additional questions and then verbalized understanding. Patient advised to call surgeon office or pre surgery nurse liaison [phone] if any additional questions.
[2021-07-30 14:11] VITALS: BMI 26.6
--- NOTE | 2021-08-11 13:35 | WPDANESEPPF ---
Anes - Initial Pre Proc Eval Procedure: Operation Date: 08/12/21 09:30 Proposed Procedures p Repair Periumbilical Incisional Hernia with Mesh - Hema Guzmán MD Date/Time: 08/11/21 13:35 Surgeon: Hema Guzmán MD Pre Op Diagnosis: Periumbilical Incisional Hernia Patient Data Age: 66 Gender: F Height: 1.65 m Weight: 72.6 kg Allergies Allergy/AdvReac Type Severity Reaction Status Date / Time Iodinated Contrast Media Allergy Severe Hives, RED Verified 08/12/21 07:34 FACE Home Medications Medication Instructions Recorded Confirmed Type aspirin 81 mg tablet,delayed 81 mg PO DAILY 04/10/19 08/12/21 History release (Adult Low Dose Aspirin) bupropion HCl 200 mg tablet,12 hr See Rx Instructions .Route 05/14/21 08/12/21 Rx sustained-release .COMPLEX #60 tabs esomeprazole magnesium 20 mg 20 mg PO DAILY #90 caps 05/14/21 08/12/21 Rx capsule,delayed release levothyroxine 100 mcg tablet See Rx Instructions .Route 05/14/21 08/12/21 Rx .COMPLEX #102 tabs lisinopril 20 1 tablet PO DAILY #90 tabs 05/14/21 08/12/21 Rx mg-hydrochlorothiazide 12.5 mg tablet atorvastatin 20 mg tablet See Rx Instructions .Route 07/07/21 08/12/21 Rx .COMPLEX #90 tabs metformin 500 mg tablet See Rx Instructions .Route 07/07/21 08/12/21 Rx .COMPLEX #180 tabs potassium chloride 10 mEq 10 meq PO DAILY #90 caps 07/08/21 08/12/21 Rx capsule,extended release Patient hx anesthesia problems: none Family hx anesthesia problems: none Results Review: All pre-operative results and documents have been reviewed as part of the pre-operative evaluation. [facility] Past Medical History Medical History (Updated 08/11/21 @ 13:36 by Terence Dumont MD) Benign hypertension Borderline diabetes mellitus BALDO (generalized anxiety disorder) Hypothyroidism (acquired) Mixed hyperlipidemia ROBERT (obstructive sleep apnea) Surgical History Surgical History History of abdominoplasty History of appendectomy History of cholecystectomy History of hysterectomy History of tubal ligation Family History Family History Father Diabetes mellitus Other Family history of malignant neoplasm Hypertension Social History Social History Social History: Smoking packs per day: 0.5 Smoking cigarettes per day: 10.0 Years smoked: 10 Smoking pack-years: 5.00 Smoking status: Former smoker Tobacco type: cigarettes Second hand tobacco smoke exposure: No Smoking end date: 03/07/13 Alcohol intake: current Drinks per week: 1 Alcohol use details: Twice a month Substance use: never Substance use type: does not use Living arrangements: alone Gender identity (if verbalized by the patient): Female Sexual Orientation (if Verbalized by the Patient): Straight or Heterosexual Spiritual care concerns: No Anes - Eval Final PreProcedure Day of Procedure 08/11/21 13:35 Patient weight: overweight Heart: regular rate and rhythm Lungs: clear to auscultation Airway: Mallampati scale class II Neurological: alert and oriented Last oral intake: >/= 8 hours ASA classification: III Emergent: no Anesthetic plan: proceed Anesthesia type and monitoring: general GIVS and LMA and standard monitoring Results Review: All pre-operative results and documents have been reviewed as part of the pre-operative evaluation. Informed Consent: The patient's anesthetic plan and its attendant risks and benefits were discussed with the patient/family/POA. Questions were solicited and answers provided to the satisfaction of the patient/family/POA.
[2021-08-12 07:24] VITALS: BP 104/87; PULSE 89; RESP 16; TEMP 36.5; O2SAT 100
[2021-08-12] MEDS: ACETAMINOPHEN 500 MG TABLET 1000 MG PO (07:38)
[2021-08-12] MEDS: LACTATED RINGERS 1,000 ML 30 ML IV CONT ×2 (07:50→10:06)
[2021-08-12] MEDS: KETOROLAC 15 MG/ML VIAL (*BKC) IV PUSH (07:51)
[2021-08-12 07:57] LABS: Glucose Point of Care 97 mg/dl (65-105)
--- NOTE | 2021-08-12 08:33 | WPDHPUPDATE1 ---
History and Physical Update Update Date/Time: 08/12/21 08:33 History and Physical has been reviewed, including an updated exam of the patient. There are NO changes in the patient's condition. Risks, benefits, and alternatives have been discussed and questions answered. Patient agrees to proceed with procedure.
[2021-08-12] MEDS: ceFAZolin 2 GM/D5W 50 ML 2 GM/50 ML BAG IVPB (08:40)
[2021-08-12] MEDS: LIDO 1%/EPINEPHRINE/PF 1:200,000 30 ML VIAL XX (08:51)
[2021-08-12 10:10] VITALS: BP 114/53; PULSE 76; RESP 12; TEMP 35.9; O2SAT 100
--- NOTE | 2021-08-12 10:14 | W.PM.PROC2 ---
Procedure Note - Detailed Date of Procedure 08/12/21 Pre-op Diagnosis Incisional Hernia Post-op Diagnosis Same Procedure Performed Repair incisional hernia with 6.[address] underlay mesh Surgeon Hema Guzmán MD Systems Software Specialist Luisana HERRON Anesthesia General (G IV S) and Local (1% lidocaine with epinephrine) Indications Patient had an abdominal plasty many years ago. She has developed a bulge in the area of her umbilical reconstruction. It has been very tender. She is taken to surgery now for repair of this incisional hernia. Findings The hernia was more to the left of the umbilicus than anticipated from her exam. It was also larger being almost 2 cm in diameter. Description of Procedure Patient was checked in the preoperative holding area. She was then taken to surgery and anesthesia was introduced. The abdomen was prepped and draped. Local was infiltrated in the previous periumbilical scar on the lower half of the umbilicus. Incision was then made only on this lower half and in the old scar. We dissected into the subcutaneous. I removed some subcutaneous fat but initially it was somewhat difficult to find the hernia sac. The sac was actually more to the patient's left and not at the umbilicus. Once I discovered this, I infiltrated additional local just lateral to the upper aspect of the current incision in a transverse orientation. I made an incision in this direction to better expose the hernia. Later in the dissection, it was evident that I would need the same type of extension on the patient's right side. Local was infiltrated there and that incision was made as well. Cautery was used for hemostasis. The hernia sac itself was dissected. I dissected the umbilical skin off the fascia. I was then able to expose the hernia defect circumferentially. I infiltrated additional local and then excised the hernia sac. I then undermined the subcutaneous all around the hernia defect for better placement of transfascial sutures. I placed a finger in the abdomen checking for any additional hernias or adhesions to the anterior abdominal wall. None were found. I chose the 6.[address] underlay patch. It was placed in the defect in position symmetrically. Cranial and caudal transfascial sutures of 0 Ethibond were placed initially. These were both tied down in such a manner that they advanced the edges of the hernia defect towards 1 another. I then placed right and left lateral transfascial sutures of 0 Ethibond to secure the fascia to the mesh in both these directions. Each of these was tied. Finally I closed the hernia defect with vertical mattress sutures of 0 Ethibond. Each of these incorporated a bit of mesh as well. This completed the fascial repair with mesh. It appeared to be quite secure. I infiltrated additional local all around the suturing that had been done. We then excised some hernia sac from the subcutaneous and discarded it. I sutured the umbilical skin to the fascia with 3-0 Vicryl suture. Some sub cutaneous 3-0 Vicryl sutures were then placed. The skin was closed loosely with interrupted 3-0 and 4-0 Vicryl subcuticular suture. Finally the skin was closed with a running 4-0 Monocryl skin suture. The wound was dressed with Exofin surgical adhesive. The patient was awakened and taken to outpatient surgery in good condition. Sponge and needle counts were correct x2. Implants 6.[address] mesh Estimated Blood Loss -5 Drains No Packing No Pathology None sent Complications No immediate complications Condition Stable Disposition Same day [facility] Billing Surgery - Charge Forward: Surgery Billing (Repair incisional hernia with mesh)
[2021-08-12 10:40] VITALS: BP 114/49; PULSE 72; RESP 16
[2021-08-12 10:40] LABS: Glucose Point of Care 123 mg/dl (65-105)
[2021-08-12] MEDS: oxyCODONE HCL (*CRX) 5 MG TAB IR PO (11:01)
[2021-08-12 11:10] VITALS: BP 125/53; PULSE 75; RESP 20
== END 2021-08-12 11:38 | disposition home or self-care (01) ==
PROVIDERS: PCP Family Medicine; Visit Provider Surgery
PROC: (CPT 49560; principal; 2021-08-12 09:30)
DX: K43.2 Incisional hernia without obstruction or gangrene (principal); I10 Essential (primary) hypertension; E78.2 Mixed hyperlipidemia; E03.9 Hypothyroidism, unspecified; G47.33 Obstructive sleep apnea (adult) (pediatric); R73.03 Prediabetes; F41.1 Generalized anxiety disorder; Z79.82 Long term (current) use of aspirin; Z79.84 Long term (current) use of oral hypoglycemic drugs; Z87.891 Personal history of nicotine dependence
CPT/HCPCS: 49560; 49568; 82948; A9270; C1781; J0690; J1100; J1885; J2250; J2270; J2405; J2704; J7120

== ENCOUNTER 2021-10-18 18:16 | Emergency (ER) | payer MEDICARE, SELFPAY ==
--- NOTE | 2021-10-18 18:19 | ED.GENADULT ---
HPI - General Adult General Chief complaint: Upper Respiratory Infection Stated complaint: Sore Throat,Bilateral Ear Irritation Time Seen by Provider: 10/18/21 18:19 Source: patient Mode of arrival: ambulatory Limitations: no limitations History of Present Illness HPI narrative: 66-year-old female patient presents to the [facility] with complaints of sore throat and bilateral ear pain that started when she woke up this morning. Denies fevers, body aches or chills. Patient states she has had a slight cough but denies any runny nose or congestion. Denies any chest pain or shortness of breath. Denies any nausea, vomiting or diarrhea. Patient requesting to be tested for strep. Patient does have primary dose of COVID vaccines as well as boosters Related Data Home Medications Medication Instructions Recorded Confirmed aspirin 81 mg tablet,delayed 81 mg PO DAILY 04/10/19 10/18/21 release (Adult Low Dose Aspirin) Allergies Allergy/AdvReac Type Severity Reaction Status Date / Time Iodinated Contrast Media Allergy Severe Hives, RED Verified 10/18/21 18:19 FACE Review of Systems Review of Systems: CONSTITUTIONAL: Denies fever, chills, or sweats. EYES: Denies visual changes, redness, or discharge. ENT: Denies rhinorrhea, congestion, positive sore throat, and bilateral otalgia. CARDIOVASCULAR: Denies chest pain, palpitations, or edema. RESPIRATORY: Positive mild cough, denies dyspnea. GASTROINTESTINAL: Denies abdominal pain, nausea, vomiting, or diarrhea. GENITOURINARY: Denies dysuria or hematuria. SKIN: Denies rash or itching. MUSCULOSKELETAL: Denies back pain, joint pain, or myalgia. NEUROLOGIC: Denies headache, numbness, or weakness. PSYCHIATRIC: Denies anxiety or depression. [facility] Past Medical History Medical History Benign hypertension Borderline diabetes mellitus BALDO (generalized anxiety disorder) Hypothyroidism (acquired) Mixed hyperlipidemia ROBERT (obstructive sleep apnea) Surgical History Surgical History H/O umbilical hernia repair 08/12/21 Repair incisional hernia with 6.[address] underlay mesh History of abdominoplasty History of appendectomy History of cholecystectomy History of hysterectomy History of tubal ligation Family History Family History Father Diabetes mellitus Other Family history of malignant neoplasm Hypertension Social History Social History Social History: Smoking packs per day: 0.5 Smoking cigarettes per day: 10.0 Years smoked: 10 Smoking pack-years: 5.00 Smoking status: Former smoker Tobacco type: cigarettes Second hand tobacco smoke exposure: No Smoking end date: 03/07/13 Alcohol intake: current Drinks per week: 1 Alcohol use details: Twice a month Substance use: never Substance use type: does not use Gender identity (if verbalized by the patient): Female Sexual Orientation (if Verbalized by the Patient): Straight or Heterosexual Spiritual care concerns: No Comments At the time of my signature I agree with nursing past medical history, surgical, social, and family history. There is no relevant family history pertinent to the presenting complaint. Exam Narrative: GENERAL: Well-appearing, well-nourished, and in no acute distress. HEAD: Normocephalic, atraumatic. EYES: PERRLA and EOMI. ENT: Nares clear, no rhinorrhea or epistaxis. Mucous membranes moist. Posterior pharynx with no erythema, tonsillar lodgment, exudates or lesions present. Bilateral TMs are clear with no erythema or foreign bodies in the canal. NECK: Supple. No lymphadenopathy CHEST: Clear to auscultation. No respiratory distress. HEART: Regular rate and rhythm. No murmur heard. Normal peripheral pulses. ABDOMEN: Soft, nontender
[2021-10-18 18:24] VITALS: BP 105/61; PULSE 97; RESP 24; TEMP 37.2; O2SAT 99
== END 2021-10-18 18:43 | disposition home or self-care (01) ==
PROVIDERS: Emergency Provider Nurse Practitioner Family; PCP Family Medicine
DX: U07.1 COVID-19 (principal); Z87.891 Personal history of nicotine dependence; E03.9 Hypothyroidism, unspecified; E78.2 Mixed hyperlipidemia; G47.33 Obstructive sleep apnea (adult) (pediatric); R73.03 Prediabetes; I10 Essential (primary) hypertension
CPT/HCPCS: 87081; 87426; 87880; 99213; C9803; G0463

== ENCOUNTER 2021-12-05 07:26 | Emergency (ER) | payer MEDICARE, SELFPAY ==
--- NOTE | ~2021-12-05 | CT_ITS ---
EXAMINATION: CT brain wo con DATE: 12/05/2021 09:44 INDICATION: Head injury. TECHNIQUE: Computed tomography (CT) of the head was performed without intravenous contrast. The mA wa s adjusted according to patient size. Iterative reconstruction technique was employed. The dose-lengt h product was 605.33 mGy-cm. COMPARISON: None FINDINGS: There is no intracranial hemorrhage, acute infarction, or abnormal intracranial mass lesion . The ventricles are normal in size. There is a left frontal scalp hematoma. The orbits are normal. T he paranasal sinuses are clear. The mastoid air cells are normal. IMPRESSION: 1. Normal brain. Reviewed, dictated and finalized at location A. IMPRESSION: 1. Normal brain.
--- NOTE | ~2021-12-05 | CT_ITS ---
EXAMINATION: CT cervical spine wo con DATE: 12/05/2021 09:44 INDICATION: Head injury. TECHNIQUE: Computed tomography (CT) of the cervical spine was performed without intravenous contrast. Automated exposure control and iterative reconstruction technique were employed. The dose-length pro duct was 345.82 mGy-cm. COMPARISON: None FINDINGS: There is 8 degrees dextrocurvature of cervicothoracic spine. There is kyphosis of cervical spine. There is 2 mm retrolisthesis of C5 on C6 and C6 on C7. Vertebral body heights are normal. Ther e is mildly decreased disc height at C4-C5 and severely decreased disc height at C5-C6 and C6-C7. The following disc levels are specifically discussed: C2-C3: There is no uncovertebral joint osteoarthritis. There is severe right facet joint osteoarthrit is. There is mild right neural foraminal stenosis. There is no central canal stenosis. C3-C4: There is no uncovertebral joint osteoarthritis. There is moderate right and severe left facet joint osteoarthritis. There is mild left neural foraminal stenosis. There is mild central canal steno sis. C4-C5: There is no uncovertebral joint osteoarthritis. There is severe bilateral facet joint osteoart hritis. There is mild bilateral neural foraminal stenosis. There is no central canal stenosis. C5-C6: There is severe bilateral uncovertebral joint osteoarthritis. There is mild bilateral facet ashley int osteoarthritis. There is mild right and moderate left neural foraminal stenosis. There is mild ce ntral canal stenosis. C6-C7: There is severe bilateral uncovertebral joint osteoarthritis. There is moderate bilateral face t joint osteoarthritis. There is mild right and moderate left neural foraminal stenosis. There is mil d central canal stenosis. C7-T1: There is no uncovertebral joint osteoarthritis. There is severe bilateral facet joint osteoart hritis. There is mild bilateral neural foraminal stenosis. There is no central canal stenosis. IMPRESSION: 1. No fracture. 2. Severe cervical spondylosis. Reviewed, dictated and finalized at location A.
[2021-12-05 07:40] VITALS: BP 125/74; PULSE 88; RESP 15; TEMP 36.4; O2SAT 100
[2021-12-05 08:35] VITALS: BP 122/72; PULSE 78; RESP 18; O2SAT 98
--- NOTE | 2021-12-05 09:12 | ED.FALL ---
HPI - Fall General Chief Complaint: Fall Stated Complaint: fall, head injury Time Seen by Provider: 12/05/21 08:53 History of Present Illness HPI Narrative: 66-year-old female presents emergency room for evaluation of a head injury. Patient states that she was walking in her kitchen when she tripped and fell striking her head on the kitchen counter. Patient denies loss of consciousness or altered mental status. Denies any nausea or vomiting. Denies any episodes of confusion. Denies any excessive somnolence. Patient states that she was able to drive herself here. Denies dizziness or lightheadedness. Patient admits to taking baby aspirin daily. Denies any visual or hearing changes. Denies neck pain. Related Data Home Medications Medication Instructions Recorded Confirmed aspirin 81 mg tablet,delayed 81 mg PO DAILY 04/10/19 10/31/21 release (Adult Low Dose Aspirin) Allergies Allergy/AdvReac Type Severity Reaction Status Date / Time Iodinated Contrast Media Allergy Severe Hives, RED Verified 12/05/21 08:06 FACE Review of Systems Review of Systems: CONSTITUTIONAL: Denies fever, chills, or sweats. EYES: Denies visual changes, redness, or discharge. ENT: Denies rhinorrhea, congestion, sore throat, or otalgia. CARDIOVASCULAR: Denies chest pain, palpitations, or edema. RESPIRATORY: Denies cough or dyspnea. GASTROINTESTINAL: Denies abdominal pain, nausea, vomiting, or diarrhea. GENITOURINARY: Denies dysuria or hematuria. SKIN: Denies rash or itching. MUSCULOSKELETAL: Denies back pain, joint pain, or myalgia. NEUROLOGIC: Denies headache, numbness, dizziness, or weakness. PSYCHIATRIC: Denies anxiety or depression. [facility] Past Medical History Medical History Benign hypertension Borderline diabetes mellitus BALDO (generalized anxiety disorder) Hypothyroidism (acquired) Mixed hyperlipidemia ROBERT (obstructive sleep apnea) Surgical History Surgical History H/O umbilical hernia repair 08/12/21 Repair incisional hernia with 6.[address] underlay mesh History of abdominoplasty History of appendectomy History of cholecystectomy History of hysterectomy History of tubal ligation Family History Family History Father Diabetes mellitus Other Family history of malignant neoplasm Hypertension Social History Social History Social History: Smoking packs per day: 0.5 Smoking cigarettes per day: 10.0 Years smoked: 10 Smoking pack-years: 5.00 Smoking status: Former smoker Tobacco type: cigarettes Second hand tobacco smoke exposure: No Smoking end date: 03/07/13 Alcohol intake: current Drinks per week: 1 Alcohol use details: Twice a month Substance use: never Substance use type: does not use Gender identity (if verbalized by the patient): Female Sexual Orientation (if Verbalized by the Patient): Straight or Heterosexual Spiritual care concerns: No Exam Narrative: GENERAL: Well-appearing, well-nourished, no physical limitations, and in no acute distress. HEAD: Normocephalic, hematoma to left brow EYES: Conjunctivae normal, PERRLA and EOMI. ENT: External nose normal, Nares clear, no rhinorrhea or epistaxis. Mucous membranes moist. Oropharynx without tonsillar hypertrophy exudate or other lesions. External ears normal, bilateral TMs normal bilaterally NECK: Supple. CHEST: Clear to auscultation. No respiratory distress. No wheezes rales or rhonchi. No tenderness. HEART: Regular rate and rhythm. No murmur heard. Normal peripheral pulses. BACK: No midline cervical tenderness, step-offs, or bony abnormality; FROM EXTREMITIES: Normal range of motion. No edema. No clubbing or cyanosis SKIN: Warm, dry, no rash. No noted wounds NEURO: No focal
[2021-12-05 10:15] VITALS: BP 118/56; PULSE 77; RESP 18; O2SAT 100
== END 2021-12-05 10:15 | disposition home or self-care (01) ==
PROVIDERS: Emergency Provider Nurse Practitioner Family; PCP Family Medicine
DX: S00.12XA Contusion of left eyelid and periocular area, initial encounter (principal); I10 Essential (primary) hypertension; E78.2 Mixed hyperlipidemia; E03.9 Hypothyroidism, unspecified; G47.33 Obstructive sleep apnea (adult) (pediatric); R73.03 Prediabetes; Z90.710 Acquired absence of both cervix and uterus; Z79.82 Long term (current) use of aspirin; Z87.891 Personal history of nicotine dependence; M47.812 Spondylosis without myelopathy or radiculopathy, cervical region; W01.198A Fall on same level from slipping, tripping and stumbling with subsequent striking against other object, initial encounter
CPT/HCPCS: 70450; 72125; 99284

== ENCOUNTER 2022-02-08 07:37 | Outpatient (CLI) | payer MEDICARE, SELFPAY ==
[2022-02-08 08:16] LABS: Basophils Percent Auto 0.6 % (0.2-1.2); Eosinophils Absolute Auto 0.1 K/mm3 (0-0.3); Eosinophils Percent Auto 1.4 % (0-4.4); Hematocrit 45.1 % (37.0-47.0); Hemoglobin 14.8 g/dL (12.0-15.0); Immature Granulocyte Absolute 0.02 K/mm3 (0.00-0.031); Immature Granulocyte Percent A 0.3 % (0-0.5); Lymphocytes Absolute Auto 2.56 K/mm3 (0.9-3.2); Lymphocytes Percent Auto 39.4 % (18.3-44.2); Mean Corpuscular HGB Conc 32.8 g/dl (32-36); Mean Corpuscular Hemoglobin 30.5 pg (26-34); Mean Platelet Volume 9.9 fl (7.4-10.4); Monocytes Absolute Auto 0.5 K/mm3 (0.1-0.6); Monocytes Percent Auto 7.2 % (2.6-8.5); Neutrophils Absolute Auto 3.3 K/mm3 (1.3-6.7); Neutrophils Percent Auto 51.1 % (45.5-73.1); Platelet Count Result 259 k/mm3 (150-375); Red Blood Count 4.85 M/mm3 (4.2-5.4); Red Cell Distribution Width 12.4 % (11.5-14.5); White Blood Count 6.5 K/mm3 (4.5-10.0)
[2022-02-08 09:42] LABS: Alanine Aminotransferase 17 U/L (6-35); Albumin Level 4.5 g/dL (3.5-5.1); Alkaline Phosphatase 103 U/L (38-126); Anion Gap 7 mmol/L (8-16); Aspartate Amino Transferase 22 U/L (14-36); Bilirubin,Total 0.9 mg/dL (0.2-1.3); Blood Urea Nitrogen 14 mg/dL (7-17); Carbon Dioxide 31 mmol/L (22-30); Chloride 103 mmol/L (98-107); Cholesterol 150 mg/dL (0-200); Estimated Glomerular Filt Rate 55; Glucose 99 mg/dL (65-110); HDL Direct 42 mg/dL; Sodium 141 mmol/L (137-145); Triglycerides 172 mg/dL (<150)
[2022-02-08 09:52] LABS: LDL Cholesterol Direct 65 mg/dL
[2022-02-08 10:12] LABS: Total Triiodothyronine (T3) 1.04 NG/ML (0.97-1.69)
[2022-02-08 11:10] LABS: Hemoglobin A1C 5.4 % (<5.7)
== END 2022-02-08 07:38 | disposition home or self-care (01) ==
LOC: ANHLAB 07:41
PROVIDERS: PCP Family Medicine; Visit Provider Nurse Practitioner Gerontology
DX: E03.9 Hypothyroidism, unspecified (principal); R73.03 Prediabetes; E78.2 Mixed hyperlipidemia; I10 Essential (primary) hypertension
CPT/HCPCS: 36415; 80053; 80061; 83036; 84439; 84443; 84480; 85025

== ENCOUNTER 2022-03-20 10:55 | Emergency (ER) | payer MEDICARE, SELFPAY ==
[2022-03-20 11:20] VITALS: BP 92/60; PULSE 98; RESP 20; TEMP 36.4; O2SAT 99
--- NOTE | 2022-03-20 11:52 | ED.URI ---
HPI - URI/Sore Throat General Chief Complaint: Upper Respiratory Infection Stated Complaint: sorethroat,earache Time Seen by Provider: 03/20/22 11:53 Source: patient and RN notes reviewed Mode of arrival: ambulatory Limitations: no limitations History of Present Illness HPI Narrative: 66-year-old female with hx DM presented for complaint of sore throat, right ear pain, and sinus congestion. Onset last night. She denies sick contacts. She took cough medicine last night for symptoms. She denies shortness of breath, wheezing, chest pain, nausea, vomiting, diarrhea, fevers or chills. She states this is how it started when she had COVID 10/2021. MD elicited complaint: cough Related Data Home Medications Medication Instructions Recorded Confirmed aspirin 81 mg tablet,delayed 81 mg PO DAILY 04/10/19 10/31/21 release (Adult Low Dose Aspirin) Allergies Allergy/AdvReac Type Severity Reaction Status Date / Time Iodinated Contrast Media AdvReac Intermediate Hives, RED Verified 03/20/22 12:11 FACE Review of Systems Review of Systems: per HPI [facility] Past Medical History Medical History Benign hypertension Borderline diabetes mellitus BALDO (generalized anxiety disorder) Hypothyroidism (acquired) Mixed hyperlipidemia ROBERT (obstructive sleep apnea) Surgical History Surgical History H/O umbilical hernia repair 08/12/21 Repair incisional hernia with 6.[address] underlay mesh History of abdominoplasty History of appendectomy History of cholecystectomy History of hysterectomy History of tubal ligation Family History Family History Father Diabetes mellitus Other Family history of malignant neoplasm Hypertension Social History Social History Social History: Smoking packs per day: 0.5 Smoking cigarettes per day: 10.0 Years smoked: 10 Smoking pack-years: 5.00 Smoking status: Former smoker Tobacco type: cigarettes Second hand tobacco smoke exposure: No Smoking end date: 03/07/13 Alcohol intake: current Alcohol use details: Twice a month Substance use: never Substance use type: does not use Gender identity (if verbalized by the patient): Female Sexual Orientation (if Verbalized by the Patient): Straight or Heterosexual Spiritual care concerns: No Exam Narrative: GENERAL: Ill-appearing, nontoxic EYES: PERRLA, conjunctivae clear ENT: Mucous membranes moist. TM pearly [place] with dull light reflex bilaterally; no tragal tenderness. Oropharynx mildly erythematous without lesions or exudate, no drooling, no hoarseness, no trismus, uvula midline. No tripod positioning, muffled voice, soft palate or pharyngeal wall bulging NECK: Supple. No lymphadenopathy CHEST: Clear to auscultation, breath sounds equal. No wheezing, rhonchi, rales, or stridor. No respiratory distress, speaks in full sentences. HEART: Regular rate and rhythm. No murmur heard. SKIN: Warm, dry, no rash. NEURO: Alert and oriented x3. PSYCH: Normal mood and affect Course Course Emergency Course: Patient is aware of diagnosis, understands and agrees to treatment plan. Anticipatory guidance given. Patient agrees to follow-up as directed and is aware of reasons to seek care at the emergency department. Portions of this record may have been created with voice recognition software Level of Care: Express Care Visit Vital Signs Vital signs: Vital Signs Temperature 97.6 F 03/20/22 11:20 Pulse Rate 98 03/20/22 11:20 Respiratory Rate 20 03/20/22 11:20 Blood Pressure 92/60 L 03/20/22 11:20 Pulse Oximetry 99 03/20/22 11:20 Oxygen Delivery Room Air 03/20/22 11:20 Temperature 97.6 F 03/20/22 11:20 Pulse Rate 98 03/20/22 11:20 Respiratory R
== END 2022-03-20 13:00 | disposition home or self-care (01) ==
PROVIDERS: Emergency Provider Nurse Practitioner Family; PCP Family Medicine
DX: B34.9 Viral infection, unspecified (principal); I10 Essential (primary) hypertension; E03.9 Hypothyroidism, unspecified; E78.5 Hyperlipidemia, unspecified; Z87.891 Personal history of nicotine dependence; Z20.822 Contact with and (suspected) exposure to COVID-19
CPT/HCPCS: 87081; 87426; 87880; 99213; C9803; G0463

== ENCOUNTER 2022-08-09 07:41 | Outpatient (CLI) | payer MEDICARE, SELFPAY ==
[2022-08-09 08:47] LABS: Alanine Aminotransferase 18 U/L (6-35); Albumin Level 4.3 g/dL (3.5-5.1); Alkaline Phosphatase 97 U/L (38-126); Anion Gap 5 mmol/L (8-16); Aspartate Amino Transferase 20 U/L (14-36); Bilirubin,Total 1.1 mg/dL (0.2-1.3); Blood Urea Nitrogen 13 mg/dL (7-17); Calcium 8.8 mg/dL (8.4-10.2); Carbon Dioxide 34 mmol/L (22-30); Chloride 101 mmol/L (98-107); Cholesterol 132 mg/dL (0-200); Estimated Glomerular Filt Rate > 60; Glucose 92 mg/dL (65-110); HDL Direct 46 mg/dL; Potassium 3.7 mmol/L (3.4-5.0); Sodium 140 mmol/L (137-145); Triglycerides 150 mg/dL (<150)
[2022-08-09 08:56] LABS: Basophils Percent Auto 0.6 % (0.2-1.2); Eosinophils Absolute Auto 0.1 K/mm3 (0-0.3); Eosinophils Percent Auto 1.7 % (0-4.4); Hematocrit 45.2 % (37.0-47.0); Hemoglobin 14.9 g/dL (12.0-15.0); Immature Granulocyte Absolute 0.02 K/mm3 (0.00-0.031); Immature Granulocyte Percent A 0.3 % (0-0.5); Lymphocytes Absolute Auto 2.48 K/mm3 (0.9-3.2); Lymphocytes Percent Auto 35.7 % (18.3-44.2); Mean Corpuscular Hemoglobin 30.4 pg (26-34); Mean Corpuscular Volume 92.2 fl (80-100); Monocytes Absolute Auto 0.6 K/mm3 (0.1-0.6); Monocytes Percent Auto 8.8 % (2.6-8.5); Neutrophils Absolute Auto 3.7 K/mm3 (1.3-6.7); Neutrophils Percent Auto 52.9 % (45.5-73.1); Platelet Count Result 276 k/mm3 (150-375); Red Cell Distribution Width 13.2 % (11.5-14.5)
[2022-08-09 08:58] LABS: LDL Cholesterol Direct 57 mg/dL
[2022-08-09 09:18] LABS: Free T4 Free Thyroxine 1.37 ng/mL (0.78-2.19); Thyroid Stimulating Hormone 0.018 uIU/mL (0.465-4.680); Total Triiodothyronine (T3) 1.36 NG/ML (0.97-1.69)
[2022-08-09 09:24] LABS: Hemoglobin A1C 5.1 % (<5.7)
== END 2022-08-09 07:42 | disposition home or self-care (01) ==
LOC: ANHLAB 07:44
PROVIDERS: PCP Family Medicine; Referring Provider Nurse Practitioner Gerontology; Visit Provider Physician Assistant
DX: R73.03 Prediabetes (principal); E78.2 Mixed hyperlipidemia; I10 Essential (primary) hypertension; E03.9 Hypothyroidism, unspecified
CPT/HCPCS: 36415; 80053; 80061; 83036; 84439; 84443; 84480; 85025

== ENCOUNTER → 2022-08-23 11:56 | Outpatient (CLI) | payer MEDICARE, SELFPAY ==
--- NOTE | ~2022-08-23 | MM_ITS ---
EXAMINATION: MM screening [facility] BI w [facility]ell HISTORY: Screening mammogram TECHNIQUE: Craniocaudal and mediolateral oblique 3-D tomosynthesis images were obtained and synthetic 2-D images were generated. CAD analysis was submitted and interpreted. COMPARISON: June 17, 2021, April 17, 2020, August 02, 2018 bilateral screening mammogram examination s BREAST PARENCHYMAL COMPOSITION: There are scattered areas of fibroglandular density. FINDINGS: Scattered bilateral benign calcifications. There is no evidence of suspicious mass, calcifi cation, or architectural distortion to suggest malignancy in either breast. There has been no suspici ous interval change. IMPRESSION: 1. No mammographic evidence of malignancy. 2. Recommend routine screening mammography in one year. BI-RADS Category 2: Benign finding(s). Reviewed, dictated and finalized at location A.
== END ==
PROVIDERS: PCP Family Medicine; Visit Provider Physician Assistant
DX: Z12.31 Encounter for screening mammogram for malignant neoplasm of breast (principal)
CPT/HCPCS: 77063; 77067

== ENCOUNTER 2022-11-02 07:27 | Outpatient (CLI) | payer MEDICARE, SELFPAY ==
[2022-11-02 10:38] LABS: Hemoglobin A1C 5.4 % (<5.7)
== END 2022-11-02 07:28 | disposition home or self-care (01) ==
PROVIDERS: PCP Family Medicine; Visit Provider Physician Assistant
DX: E03.9 Hypothyroidism, unspecified (principal); R73.03 Prediabetes
CPT/HCPCS: 36415; 83036; 84443

== ENCOUNTER 2023-03-11 11:17 | Emergency (ER) | payer MEDICARE, SELFPAY ==
--- NOTE | ~2023-03-11 | XR_ITS ---
Supine and upright views of the abdomen Clinical history: Abdominal pain Findings: Bowel gas pattern is nonspecific. No evidence for obstruction or free air. No abnormal mass lesion or calcification is seen. There is dextroscoliosis and degenerative change of the lumbar spin e. Impression: No significant abnormality is seen. Reviewed, dictated and finalized at [facility]. [employer] SALES MANAGER Impression: No significant abnormality is seen.
--- NOTE | 2023-03-11 11:26 | ED.ABDPAIN ---
HPI - Abdominal Pain General Chief Complaint: Abdominal Pain Stated Complaint: abdomen pain,nausea Time Seen by Provider: 03/11/23 11:27 Source: patient Mode of arrival: ambulatory Limitations: no limitations History of Present Illness HPI narrative: Naomy is a 67-year-old female patient presenting to the clinic today with complaints of left lower quadrant abdominal pain and nausea that started on Tuesday. She reports she has history of diverticulosis/diverticulitis. Ate some strawberries on . Is complaining of pain to the left lower quadrant with nausea. She denies any vomiting but has had some slight diarrhea without blood in it. Has felt feverish with chills on Tuesday but that has resolved. Denies any urinary symptoms. Rates her pain currently a 3/10. Pain is a dull ache in the left lower abdomen Related Data Home Medications Medication Instructions Recorded Confirmed aspirin 81 mg tablet,delayed 81 mg PO DAILY 04/10/19 03/11/23 release (Adult Low Dose Aspirin) Allergies Allergy/AdvReac Type Severity Reaction Status Date / Time Iodinated Contrast Media AdvReac Intermediate Hives, RED Verified 03/11/23 11:34 FACE Review of Systems Review of Systems: Pertinent positives per HPI. Patient denies any fever, chills, rash, headache, visual changes, dizziness, cough, runny nose, sore throat, shortness of breath, chest pain, palpitations, nausea, vomiting, diarrhea, constipation. PMFSH Past Medical History Medical History Benign hypertension Bicipital tendinitis of right shoulder Borderline diabetes mellitus Contusion of head COVID-19 virus infection Elevated ALT measurement Encounter for other specified surgical aftercare Fall BALDO (generalized anxiety disorder) Hematoma and contusion Hypothyroidism (acquired) Mixed hyperlipidemia ROBERT (obstructive sleep apnea) Shoulder region pain Surgical History Surgical History H/O umbilical hernia repair 08/12/21 Repair incisional hernia with 6.[address] underlay mesh History of abdominoplasty History of appendectomy History of cholecystectomy History of hysterectomy History of tubal ligation Family History Family History Father Diabetes mellitus Other Family history of malignant neoplasm Hypertension Social History Social History Social History: Smoking packs per day: 0.5 Smoking cigarettes per day: 10.0 Years smoked: 10 Smoking pack-years: 5.00 Smoking status: Former smoker Tobacco type: cigarettes Second hand tobacco smoke exposure: No Smoking end date: 03/07/13 Alcohol intake: current Alcohol use details: Twice a month Substance use: never Substance use type: does not use Lack of Transportation: No Lack of Food: Never True Current Housing: I Have Housing Concerned About Future Housing: No Difficulty Paying Gas/Electric Bills: No Difficulty Paying for Meds: No Currently Unemployed: YES Education: Don't Know Difficulty w/ Childcare or Family Care: No Living arrangements: with family Occupation/Education: retired Gender identity (if verbalized by the patient): Female Sexual Orientation (if Verbalized by the Patient): Straight or Heterosexual Spiritual care concerns: No Comments At the time of my signature, I reviewed and agree with the nursing past medical, surgical, social, and family history. There is no relevant family history pertinent to the patient complaint. Exam Narrative: General: Well-developed, well nourished, in no apparent distress. Head: Normocephalic, atraumatic. Cardio: Regular rate and rhythm, s1 and s2 normal, no murmur appreciated. Resp: Clear to auscultation bilaterally, no rhonchi, rale
[2023-03-11 11:30] VITALS: BP 109/71; PULSE 95; RESP 16; TEMP 35.9; O2SAT 96
== END 2023-03-11 12:29 | disposition home or self-care (01) ==
PROVIDERS: Emergency Provider Nurse Practitioner Family; PCP Family Medicine
DX: N30.00 Acute cystitis without hematuria (principal); R10.32 Left lower quadrant pain; I10 Essential (primary) hypertension; E03.9 Hypothyroidism, unspecified; E78.2 Mixed hyperlipidemia; Z79.82 Long term (current) use of aspirin; Z87.891 Personal history of nicotine dependence
CPT/HCPCS: 74019; 81003; 87086; 87088; 99213; G0463

== ENCOUNTER 2023-05-13 08:42 | Emergency (ER) | payer MEDICARE, SELFPAY ==
[2023-05-13 08:49] VITALS: BP 113/59; PULSE 95; RESP 16; TEMP 36.3; O2SAT 98
--- NOTE | 2023-05-13 09:06 | ED.FEMALEGU ---
HPI - Female Genitourinary General Chief complaint: Urogenital-Female Stated complaint: Urinary Problems Time Seen by Provider: 05/13/23 08:55 Source: patient and RN notes reviewed Mode of arrival: ambulatory Limitations: no limitations History of Present Illness HPI Narrative: Patient presents today with a 2 day history of urinary frequency, urgency, and lower abdominal pain. Denies fever, nausea vomiting, sweats or chills. She has been taking ibuprofen and currently rates her pain 5/10. Related Data Home Medications Medication Instructions Recorded Confirmed aspirin 81 mg tablet,delayed 81 mg PO DAILY 04/10/19 05/13/23 release (Adult Low Dose Aspirin) Allergies Allergy/AdvReac Type Severity Reaction Status Date / Time Iodinated Contrast Media AdvReac Intermediate Hives, RED Verified 05/13/23 08:43 FACE Review of Systems Review of Systems: CONSTITUTIONAL: Denies body aches, fever, chills, or sweats. EYES: Denies visual changes, redness, or discharge. ENT: Denies rhinorrhea, congestion, sore throat, or otalgia. CARDIOVASCULAR: Denies chest pain, palpitations, or edema. RESPIRATORY: Denies cough or dyspnea. GASTROINTESTINAL: Denies nausea, vomiting, or diarrhea.+ lower abdominal pain GENITOURINARY: + frequency, urgency SKIN: Denies rash, itching, or wounds. MUSCULOSKELETAL: Denies back pain, joint pain, or myalgia. NEUROLOGIC: Denies headache, numbness, tingling, or weakness. PSYCH: Denies depression or anxiety. [facility] Past Medical History Medical History Benign hypertension Bicipital tendinitis of right shoulder Borderline diabetes mellitus Contusion of head COVID-19 virus infection Elevated ALT measurement Encounter for other specified surgical aftercare Fall BALDO (generalized anxiety disorder) Hematoma and contusion Hypothyroidism (acquired) Mixed hyperlipidemia ROBERT (obstructive sleep apnea) Shoulder region pain Surgical History Surgical History H/O umbilical hernia repair 08/12/21 Repair incisional hernia with 6.[address] underlay mesh History of abdominoplasty History of appendectomy History of cholecystectomy History of hysterectomy History of tubal ligation Family History Family History Father Diabetes mellitus Other Family history of malignant neoplasm Hypertension Social History Social History Social History: Smoking packs per day: 0.5 Smoking cigarettes per day: 10.0 Years smoked: 10 Smoking pack-years: 5.00 Smoking status: Former smoker Tobacco type: cigarettes Second hand tobacco smoke exposure: No Smoking end date: 03/07/13 Alcohol intake: current Alcohol use details: Twice a month Substance use: never Substance use type: does not use Lack of Transportation: No Lack of Food: Never True Current Housing: I Have Housing Concerned About Future Housing: No Difficulty Paying Gas/Electric Bills: No Difficulty Paying for Meds: No Currently Unemployed: YES Education: Don't Know Difficulty w/ Childcare or Family Care: No Living arrangements: with family Occupation/Education: retired Gender identity (if verbalized by the patient): Female Sexual Orientation (if Verbalized by the Patient): Straight or Heterosexual Spiritual care concerns: No Comments At time of signature, I have reviewed and agree with nursing past medical, surgical, social and family history unless otherwise noted. Please see nursing chart for further information. There is no relevant family history pertinent to the presenting complaint Exam Narrative: GENERAL: Well-appearing, well-nourished, and in no acute distress. HEAD: Normocephalic, atraumatic. EYES: EOMI. No redness or drai
== END 2023-05-13 09:13 | disposition home or self-care (01) ==
PROVIDERS: Emergency Provider Nurse Practitioner; PCP Family Medicine
DX: N30.00 Acute cystitis without hematuria (principal); I10 Essential (primary) hypertension; E78.2 Mixed hyperlipidemia; E03.9 Hypothyroidism, unspecified; Z79.82 Long term (current) use of aspirin; Z87.891 Personal history of nicotine dependence
CPT/HCPCS: 81003; 87086; 87088; 99213; G0463

== ENCOUNTER 2023-08-29 07:29 | Outpatient (CLI) | payer MEDICARE, SELFPAY ==
[2023-08-29 08:38] LABS: Free T4 Free Thyroxine 1.26 ng/mL (0.78-2.19)
== END 2023-08-29 07:30 | disposition home or self-care (01) ==
LOC: ANHLAB 07:32
PROVIDERS: PCP Family Medicine; Visit Provider Physician Assistant
DX: E07.9 Disorder of thyroid, unspecified (principal)
CPT/HCPCS: 36415; 84439; 84443

== ENCOUNTER 2023-09-26 07:00 | Outpatient (CLI) | payer MEDICARE, SELFPAY ==
[2023-09-26 07:44] LABS: Basophils Absolute Auto 0.1 K/mm3 (0.0-0.1); Basophils Percent Auto 0.7 % (0.2-1.2); Eosinophils Absolute Auto 0.1 K/mm3 (0-0.3); Eosinophils Percent Auto 1.4 % (0-4.4); Hematocrit 46.9 % (37.0-47.0); Hemoglobin 15.3 g/dL (12.0-15.0); Immature Granulocyte Absolute 0.01 K/mm3 (0.00-0.031); Immature Granulocyte Percent A 0.1 % (0-0.5); Mean Corpuscular HGB Conc 32.6 g/dl (32-36); Mean Corpuscular Hemoglobin 30.8 pg (26-34); Mean Corpuscular Volume 94.4 fl (80-100); Monocytes Absolute Auto 0.7 K/mm3 (0.1-0.6); Neutrophils Percent Auto 59.8 % (45.5-73.1); Platelet Count Result 276 k/mm3 (150-375); Red Blood Count 4.97 M/mm3 (4.2-5.4); Red Cell Distribution Width 13.1 % (11.5-14.5); White Blood Count 8.3 K/mm3 (4.5-10.0)
[2023-09-26 07:55] LABS: Alanine Aminotransferase 15 U/L (6-35); Albumin Level 4.6 g/dL (3.5-5.1); Alkaline Phosphatase 98 U/L (38-126); Anion Gap 9 mmol/L (4-12); Aspartate Amino Transferase 24 U/L (14-36); Bilirubin,Total 1.5 mg/dL (0.2-1.3); Blood Urea Nitrogen 24 mg/dL (7-17); Calcium 9.1 mg/dL (8.4-10.2); Carbon Dioxide 33 mmol/L (22-30); Chloride 96 mmol/L (98-107); Cholesterol 113 mg/dL (0-200); Estimated Glomerular Filt Rate 55; Glucose 114 mg/dL (65-110); HDL Direct 39 mg/dL; Potassium 3.8 mmol/L (3.4-5.0); Sodium 138 mmol/L (137-145); Triglycerides 139 mg/dL (<150)
[2023-09-26 08:06] LABS: LDL Cholesterol Direct 57 mg/dL
[2023-09-26 08:25] LABS: Thyroid Stimulating Hormone 0.959 uIU/mL (0.465-4.680)
[2023-09-26 09:43] LABS: Hemoglobin A1C 5.7 % (<5.7)
== END 2023-09-26 07:01 | disposition home or self-care (01) ==
LOC: ANHLAB 07:04
PROVIDERS: PCP Family Medicine; Visit Provider Physician Assistant
DX: I10 Essential (primary) hypertension (principal); E03.9 Hypothyroidism, unspecified; E78.2 Mixed hyperlipidemia; E65 Localized adiposity; E07.9 Disorder of thyroid, unspecified; R73.03 Prediabetes
CPT/HCPCS: 36415; 80053; 80061; 83036; 84439; 84443; 85025

== ENCOUNTER 2023-10-25 11:13 | Outpatient (CLI) | payer MEDICARE, SELFPAY ==
--- NOTE | ~2023-10-25 | MM_ITS ---
EXAMINATION: MM screening [facility] BI w [facility]ell HISTORY: Screening TECHNIQUE: Craniocaudal and mediolateral oblique 3-D tomosynthesis images were obtained and synthetic 2-D images were generated. CAD analysis was submitted and interpreted. COMPARISON: Comparison to multiple prior studies sequentially, with oldest reviewed study dated 08/02. BREAST PARENCHYMAL COMPOSITION: Not dense: There are scattered areas of fibroglandular density. FINDINGS: There is no evidence of suspicious mass, calcification, or architectural distortion to sugg est malignancy in either breast. There has been no suspicious interval change. IMPRESSION: 1. No mammographic evidence of malignancy. 2. Recommend routine screening mammography in one year. BI-RADS Category 1: Negative Reviewed, dictated and finalized at location B.
== END 2023-10-25 11:14 ==
LOC: MICIMG 11:14
PROVIDERS: PCP Family Medicine; Visit Provider Physician Assistant
DX: Z12.31 Encounter for screening mammogram for malignant neoplasm of breast (principal)
CPT/HCPCS: 77063; 77067

== ENCOUNTER 2023-11-03 10:52 | Outpatient (CLI) | payer MEDICARE, SELFPAY ==
[2023-11-03 12:24] LABS: Thyroid Stimulating Hormone 0.411 uIU/mL (0.465-4.680)
[2023-11-03 12:25] LABS: Free T4 Free Thyroxine 1.28 ng/mL (0.78-2.19)
== END 2023-11-03 10:53 | disposition home or self-care (01) ==
LOC: ANHLAB 10:54
PROVIDERS: PCP Family Medicine; Visit Provider Student in an Organized Health Care Education/Training Program
DX: E03.9 Hypothyroidism, unspecified (principal)
CPT/HCPCS: 36415; 84439; 84443

== ENCOUNTER 2023-11-14 08:04 | Outpatient (CLI) | payer MEDICARE, SELFPAY ==
[2023-11-14 08:52] LABS: Alanine Aminotransferase 14 U/L (6-35); Albumin Level 4.1 g/dL (3.5-5.1); Alkaline Phosphatase 77 U/L (38-126); Anion Gap 9 mmol/L (4-12); Aspartate Amino Transferase 22 U/L (14-36); Bilirubin,Total 0.8 mg/dL (0.2-1.3); Blood Urea Nitrogen 17 mg/dL (7-17); Carbon Dioxide 32 mmol/L (22-30); Chloride 100 mmol/L (98-107); Estimated Glomerular Filt Rate 55; Glucose 96 mg/dL (65-110); Potassium 3.9 mmol/L (3.4-5.0); Sodium 141 mmol/L (137-145)
== END 2023-11-14 08:05 | disposition home or self-care (01) ==
PROVIDERS: PCP Family Medicine; Visit Provider Physician Assistant
DX: R17 Unspecified jaundice (principal)
CPT/HCPCS: 36415; 80053

== ENCOUNTER 2023-12-02 10:04 | Outpatient (CLI) | payer MEDICARE, SELFPAY ==
[2023-12-02 10:32] LABS: Alanine Aminotransferase 13 U/L (6-35); Albumin Level 4.1 g/dL (3.5-5.1); Alkaline Phosphatase 79 U/L (38-126); Anion Gap 8 mmol/L (4-12); Aspartate Amino Transferase 21 U/L (14-36); Bilirubin,Total 0.9 mg/dL (0.2-1.3); Blood Urea Nitrogen 11 mg/dL (7-17); Calcium 8.7 mg/dL (8.4-10.2); Carbon Dioxide 32 mmol/L (22-30); Chloride 101 mmol/L (98-107); Estimated Glomerular Filt Rate > 60; Glucose 104 mg/dL (65-110); Potassium 3.6 mmol/L (3.4-5.0); Sodium 141 mmol/L (137-145)
== END 2023-12-02 10:05 | disposition home or self-care (01) ==
PROVIDERS: PCP Family Medicine; Visit Provider Student in an Organized Health Care Education/Training Program
DX: R17 Unspecified jaundice (principal)
CPT/HCPCS: 36415; 80053

== ENCOUNTER 2024-01-06 13:31 | Outpatient (CLI) | payer MEDICARE, SELFPAY ==
[2024-01-06 14:31] LABS: Free T4 Free Thyroxine 1.27 ng/mL (0.78-2.19)
[2024-01-06 14:36] LABS: Thyroid Stimulating Hormone 0.961 uIU/mL (0.465-4.680)
== END 2024-01-06 13:32 | disposition home or self-care (01) ==
PROVIDERS: PCP Family Medicine; Visit Provider Physician Assistant
DX: E07.9 Disorder of thyroid, unspecified (principal)
CPT/HCPCS: 36415; 84439; 84443

== ENCOUNTER 2024-09-04 11:31 | Outpatient (CLI) | payer MEDICARE, SELFPAY ==
--- NOTE | ~2024-09-04 | XR_ITS ---
Right Knee Technique: AP, lateral, and sunrise views were obtained. Clinical History: Pain Findings: No fracture or dislocation is seen. Osseous alignment is anatomic. There is moderate tricom partmental degenerative spurring.. Small joint effusion is seen. Impression: Degenerative change, as above. Small joint effusion. Reviewed, dictated and finalized at location . Impression: Degenerative change, as above. Small joint effusion.
== END 2024-09-04 11:32 | disposition home or self-care (01) ==
PROVIDERS: PCP Chiropractor Rehabilitation; Visit Provider Chiropractor Rehabilitation
DX: M25.551 Pain in right hip (principal); M25.461 Effusion, right knee
CPT/HCPCS: 73564

== ENCOUNTER 2024-09-10 07:33 | Outpatient (CLI) | payer MEDICARE, SELFPAY ==
--- OUTSIDE RECORDS SUMMARY | 2024-09-10 07:43 | XMS_ITS | Clinical Summary ---
Author Organization [facility] Address [address] [place] [address] Care Team Providers Care Cement Breaker Name Role Phone Blanca Maloney MD Primary Care Provider [phone] Allergies Active Allergy Reactions Criticality Noted Date Comments Iodine Other (see comment) 10/15/2021 Welts and itching Medications traMADol (ULTRAM) 50 MG tablet Take 1 tablet by mouth as needed. 10/13/19 22 Active buPROPion (WELLBUTRIN) 100 MG tablet Take 200 mg by mouth 2 (two) times daily. Active metFORMIN (GLUCOPHAGE) 500 MG tablet Take 500 mg by mouth 2 (two) times daily with meals. Active esomeprazole (NEXIUM) 20 MG capsule Take 20 mg by mouth every morning before breakfast. Active lisinopril 20 MG TABS 20 mg, hydroCHLOROthiazide 12.5 MG CAPS 12.5 mg Take by mouth daily. Active levothyroxine (SYNTHROID) 100 MCG tablet Take 100 mcg by mouth every morning. Active potassium chloride CR (KLOR-CON M) 10 MEQ tablet Take 10 mEq by mouth daily. Active aspirin EC (ECOTRIN) 81 MG tablet Take 81 mg by mouth daily. Active potassium chloride CR (MICRO-K) 10 MEQ CR capsule Take 10 mEq by mouth daily. 10/06/19 22 Active metFORMIN (GLUCOPHAGE) 500 MG tablet daily. Active lisinopril-hydroCHLOROt hiazide (ZESTORETIC) 20-12.5 MG tablet Take 1 tablet by mouth daily. 11/07/19 22 Active levothyroxine (SYNTHROID) 25 MCG tablet daily. Active lisinopril (PRINIVIL) 20 MG tablet 1 tablet. Active furosemide (LASIX) 20 MG tablet 1 tablet. Active diphenhydrAMINE (BENADRYL) 50 MG Cap capsule 1 capsule 05/13/19 Active atorvastatin (LIPITOR) 10 MG tablet 1 tablet. Active Active Problems Problem Noted Date Diagnosed Date Pain due to varicose veins of both lower extremi ties 12/14/2021 Acquired hypothyroidism 11/11/2016 Anxiety 11/11/2016 Controlled type 2 diabetes m ellitus without complication ([facility]) 11/11/2016 Diverticulosis of large intestine without hemorr tigre 11/11/2016 Essential hypertension 11/11/2016 Foreign body in skin 11/11/2016 Gastroesophageal reflux disease without esophagi tis 11/11/2016 History of hysterectomy for cancer 11/11/2016 Mixed hyperlipidemia 11/11/2016 Obstructive sleep apnea syndrome 11/11/2016 Right foot pain 11/11/2016 Immunizations Immunization Administration Dates Next Due Influenza (Generic) 02/01/2017,12/27/2015,2015,01/21/2015 Influenza Adult (Generic) 04/30/2019 Pneumococcal (Prevnar 13) 02/08/2020 Family History Medical History Relation Comments Diabetes Father No Known Problems Mother Diabetes Sister 1 Diabetes Sister 2 Diabetes Sister 3 Relation Status Comments Father Mother Sister 1 Alive Sister 2 Alive Sister 3 Alive Social History Tobacco Use Types Packs/Day Years Used Date Smoking Tobacco: Former Cigarettes Q uit: 2013 Smokeless Tobacco: Never Alcohol Use Standard Drinks/Week Comments Yes 1.7 (1 standard drink = 0.6 oz p ure alcohol) 1 Comments No Sex and Gender Information Value Date Recorded Sex Assigned at Not on file Legal Sex Female 10:20 PM CDT Gender Identity Not on file Sexual Orientation Not on file Last Filed Vital Signs Vital Sign Reading Time Taken Comments Blood Pressure 170/70 12/16/2021 2:08 PM CDT Pulse 90 12/16/2021 2:08 PM CDT Temperature 36.9 C (98.4 F) 11/16/2021 5:20 PM CDT Respiratory Rate 17 11/16/2021 5:20 PM CDT Oxygen Saturation 96% 11/16/2021 5:20 PM CDT Inhaled Oxygen Concentration - - Weight 75.8 kg (167 lb) 12/16/2021 2:08 PM CDT Height 162.6 cm (5' 4) 12/16/2021 2:08 PM CDT Body Mass Index 28.67 12/16/2021 2:08 PM CDT Plan of Treatment Health Maintenance Due Date Last Done Comments Colorectal Cancer Screening Colonoscopy (10 Years) 1953 Kidney Health Evaluation 1955 Hemoglobin A1C 1953 Lipid Panel 1953 Diabetes: Retinopathy Eye Exam 07/14/1971 Hepatitis C 07/14/1971 DTaP, Tdap and Td Vaccines ( 1 - Tdap) 1972 Mammogram Screening 1993 Zoster Vaccines (1 of 2) 07/14/2003 Annual Medicare Wellness Visit 2018 Dexa Scan (General) 2018 Pneumococcal Vaccine: 50+ Years (2 of 2 - PPSV23) 04/04/2020 02/08/2020 COVID-19 Vaccine (4 - 2023-2 5 season) 2023 01/02/2021, 05/09/2020, 04/19/2020 RSV Immunization or 60+ Years (1 - 1-dose 75+ series) 2028 Meningococcal B Vaccine Aged Out No l onger eligible based on patient's age to complete this topic Meningococcal Vaccine Aged Out No rachel low eligible based on patient's age to complete this topic RSV Immunizations Under 20 Months Aged Out No longer eligible b ased on patient's age to complete this topic Insurance MED [facility] MEDICARE Care Teams Cement Breaker Relationship Specialty Start Date End Date Blanca Maloney MD [address] [place] [address] PCP - General FAMILY PRACTICE 12/16/21
--- OUTSIDE RECORDS SUMMARY | 2024-09-10 07:43 | XMS_ITS | Patient Health Record ---
Author Organization [facility] Address [address] [place] [address] Care Team Providers Care Coil Finisher Name Role Phone HAJA RENAE Unavailable [phone] Allergies Allergen (clinical drug ingredient) Drug/Non Drug Allergy documented on EMR Reaction Allergy Type Onset Date Status IV Dye (uncoded) Unknown Allergy Act santiago Reason For Referral No Information Medications Medication SIG (Take, Route, Frequency, Duration) Notes Start Date End Date Status Lisinopril 20 MG 1 tablet Orally Once a day for 30 day(s) Active Lasix 20 MG 1 tablet Orally Once a day for 30 day(s) Active metFORMIN HCl 500 MG 1 tablet with a donna l Orally Once a day for 30 day(s) Active Wellbutrin Active diphenhydrAMINE HCl 50 MG 1 capsule Oral ly 12 hours and 2 hours prior to procedure for 1 days 05/12/2021 Active predniSONE 50 MG 1 tablet Orally 12 h ours and 2 hours prior to procedure for 1 days 05/12/2021 Active Atorvastatin Calcium 10 MG 1 tablet Oral ly Once a day for 30 day(s) Active Synthroid 25 MCG 1 tablet in the morn ing on an empty stomach Orally Once a day for 30 day(s) Active Social History Tobacco Use: Social History Observation Description Date Details (start date - stop date) Never Smoker NA - NA Tobacco Use/Smoking Question Answer Notes Are you a nonsmoker Problems Problem Type SNOMED Code ICD Code Onset Dates Problem Status W/U Status Risk Notes Problem Pain co-occurrent and due to varicose veins of bilateral legs (5771243985276 9100) Varicose veins of bilateral lower extremities with pain (I83.813) Active confirmed Plan Of Treatment No Information Insurance Providers Payer Name Payer Address Payer Phone Subscriber Number Group Number Insured Name Patient Relationship to Insured Coverage Start Date Coverage End Date [facility] Medicare Advantage [address] [address] [place] [address] [id number] Naomy Cano Self - patient is the insured Medical (General) History Medical History History ICD Code Hypothyroidism HLD HTN Varicose veins-more than a dozen scleror x/ablations bilaterally. Surgical History Surgery Date(Month/Year) Gall bladder Tubaligation Tummy Tuck Appendectomy
[2024-09-10 08:03] LABS: Hematocrit 44.0 % (37.0-47.0); Hemoglobin 14.4 g/dL (12.0-15.0); Mean Corpuscular HGB Conc 32.7 g/dl (32-36); Mean Corpuscular Hemoglobin 30.9 pg (26-34); Mean Corpuscular Volume 94.4 fl (80-100); Platelet Count Result 304 k/mm3 (150-375); Red Blood Count 4.66 M/mm3 (4.2-5.4); White Blood Count 8.3 K/mm3 (4.5-10.0)
[2024-09-10 08:12] LABS: Alanine Aminotransferase 17 U/L (6-35); Albumin Level 4.2 g/dL (3.5-5.1); Alkaline Phosphatase 84 U/L (38-126); Anion Gap 10 mmol/L (4-12); Aspartate Amino Transferase 24 U/L (14-36); Bilirubin,Total 1.1 mg/dL (0.2-1.3); Blood Urea Nitrogen 13 mg/dL (7-17); Calcium 9.4 mg/dL (8.4-10.2); Carbon Dioxide 29 mmol/L (22-30); Chloride 100 mmol/L (98-107); Cholesterol 127 mg/dL (0-200); Estimated Glomerular Filt Rate 51; Glucose 106 mg/dL (65-110); HDL Direct 43 mg/dL; Potassium 4.4 mmol/L (3.4-5.0); Sodium 139 mmol/L (137-145); Total Protein 7.5 g/dL (6.3-8.2); Triglycerides 113 mg/dL (<150)
[2024-09-10 08:43] LABS: Thyroid Stimulating Hormone 1.040 uIU/mL (0.465-4.680)
[2024-09-10 08:56] LABS: Hemoglobin A1C 5.4 % (<5.7)
[2024-09-10 09:14] LABS: MALB Creatinine Ratio < 5.9 mg/g (0-30)
[2024-09-12 15:54] LABS: Immunoglobulin A 158 mg/dL (70-320); TTG IGA AB <1.0 U/mL
[2024-09-13 11:18] LABS: S cerevisiae Ab (IgA) 5.5 U (<=20.0); S cerevisiae Ab (IgG) 5.3 U (<=20.0)
[2024-09-13 18:09] LABS: Myeloperoxidase Ab <1.0 AI (<1.0); Proteinase-3 Ab <1.0 AI (<1.0)
[2024-09-18 15:19] LABS: ANCA Screen Negative (Negative)
== END 2024-09-10 07:34 | disposition home or self-care (01) ==
PROVIDERS: PCP Family Medicine; Visit Provider Physician Assistant Medical
DX: R73.03 Prediabetes (principal); I10 Essential (primary) hypertension; E78.2 Mixed hyperlipidemia; E03.9 Hypothyroidism, unspecified; K59.01 Slow transit constipation; R14.0 Abdominal distension (gaseous); R68.81 Early satiety; F41.1 Generalized anxiety disorder
CPT/HCPCS: 36415; 80053; 80061; 82043; 82784; 83036; 84443; 85027; 86036; 86671

== ENCOUNTER 2024-10-05 14:16 | Emergency (ER) | payer MEDICARE, SELFPAY ==
--- NOTE | ~2024-10-05 | XR_ITS ---
CHEST RADIOGRAPH, PA AND LATERAL CLINICAL HISTORY: cp . COMPARISON: None available TECHNIQUE: PA and lateral views of the chest. FINDINGS The cardiomediastinal silhouette is unremarkable. The lungs are clear. IMPRESSION: No focal infiltrate or effusion. Reviewed, dictated and finalized at location A.
--- NOTE | 2024-10-05 14:17 | ECG_ITS ---
Test Date: 2024-10-05 14:31:25 Measurements Intervals [place] Rate: 99 P: 3 VA: 148 QRS: 19 QRSD: 77 T: 29 QT: 337 QTc: 433 Interpretive Statements SINUS RHYTHM CONSIDER INFERIOR INFARCT, AGE INDETERMINATE BASELINE ARTIFACT- I, III, AVR, AVL ABNORMAL ECG No previous ECG available for comparison Electronically Signed On 10-05-2024 14:37:52 CDT by Richie Brady D.O.
--- OUTSIDE RECORDS SUMMARY | 2024-10-05 14:19 | XMS_ITS | Patient Health Record ---
Author Organization [facility] Address [address] [place] [address] Care Team Providers Care Technology Coordinator Name Role Phone HAJA RENAE Unavailable [phone] Allergies Allergen (clinical drug ingredient) Drug/Non Drug Allergy documented on EMR Reaction Allergy Type Onset Date Status IV Dye (uncoded) Unknown Allergy Act santiago Reason For Referral No Information Medications Medication SIG (Take, Route, Frequency, Duration) Notes Start Date End Date Status Lisinopril 20 MG 1 tablet Orally Once a day; Duration: 30 day(s) Active Lasix 20 MG 1 tablet Orally Once a day; Duration: 30 day(s) Active metFORMIN HCl 500 MG 1 tablet with a donna l Orally Once a day; Duration: 30 day(s) Active Wellbutrin Active diphenhydrAMINE HCl 50 MG 1 capsule Oral ly 12 hours and 2 hours prior to procedure; Duration: 1 days 05/12/2021 Active predniSONE 50 MG 1 tablet Orally 12 h ours and 2 hours prior to procedure; Duration: 1 days 05/12/2021 Active Atorvastatin Calcium 10 MG 1 tablet Oral ly Once a day; Duration: 30 day(s) Active Synthroid 25 MCG 1 tablet in the morn ing on an empty stomach Orally Once a day; Duration: 30 day(s) Active Social History Tobacco Use: Social History Observation Description Date Details (start date - stop date) Never Smoker NA - NA Tobacco Use/Smoking Question Answer Notes Are you a nonsmoker Problems Problem Type SNOMED Code ICD Code Onset Dates Problem Status W/U Status Risk Notes Problem Pain co-occurrent and due to varicose veins of bilateral legs ([id number] 9100) Varicose veins of bilateral lower extremities with pain (I83.813) Active confirmed Plan Of Treatment No Information Insurance Providers Payer Name Payer Address Payer Phone Subscriber Number Group Number Insured Name Patient Relationship to Insured Coverage Start Date Coverage End Date [employer] Medicare Advantage [address] [address] [place] [address] [id number] Naomy Cano Self - patient is the insured Medical (General) History Medical History History ICD Code Hypothyroidism HLD HTN Varicose veins-more than a dozen scleror x/ablations bilaterally. Surgical History Surgery Date(Month/Year) Gall bladder Tubaligation Tummy Tuck Appendectomy
--- OUTSIDE RECORDS SUMMARY | 2024-10-05 14:19 | XMS_ITS | Clinical Summary ---
Author Organization [facility] Address [address] [place] [address] Care Team Providers Care Application Performance Engineer Name Role Phone Blanca Maloney MD Primary Care Provider +1- [phone] Allergies Active Allergy Reactions Criticality Noted Date [...] type 2 diabetes m ellitus without complication ([facility]/HCC [facility]) 11/11/2016 Diverticulosis of [...] age to complete this topic Insurance MED [facility] [place] [address] Care Teams Application Performance Engineer Relationship Specialty Start Date End Date Blanca Maloney MD [address] [facility] [place] [address] PCP - General FAMILY PRACTICE 12/16/21
[2024-10-05 14:27] VITALS: BP 119/78; PULSE 98; RESP 16; TEMP 36.4; O2SAT 99
[2024-10-05 14:39] LABS: Hematocrit 46.0 % (37.0-47.0); Hemoglobin 15.4 g/dL (12.0-15.0); Immature Granulocyte Percent A 0.3 % (0-0.5); Lymphocytes Absolute Auto 3.40 K/mm3 (0.9-3.2); Mean Corpuscular HGB Conc 33.5 g/dl (32-36); Mean Corpuscular Hemoglobin 31.2 pg (26-34); Mean Corpuscular Volume 93.1 fl (80-100); Nucleated Red Blood Cells Absolute Auto 0.000 K/mm3 (0.0-0.012); Nucleated Red Blood Cells Perc 0.0 % (0.0-0.2); Platelet Count Result 319 k/mm3 (150-375); Red Blood Count 4.94 M/mm3 (4.2-5.4); White Blood Count 11.1 K/mm3 (4.5-10.0)
[2024-10-05 14:55] LABS: Alanine Aminotransferase 20 U/L (6-35); Albumin Level 4.6 g/dL (3.5-5.1); Alkaline Phosphatase 94 U/L (38-126); Anion Gap 13 mmol/L (4-12); Aspartate Amino Transferase 30 U/L (14-36); Bilirubin,Total 0.9 mg/dL (0.2-1.3); Blood Urea Nitrogen 17 mg/dL (7-17); Calcium 9.2 mg/dL (8.4-10.2); Carbon Dioxide 24 mmol/L (22-30); Chloride 100 mmol/L (98-107); Estimated CRCL calculation 46 ml/min; Estimated Glomerular Filt Rate 55; Glucose 124 mg/dL (65-110); INR 1.0; Lipase 68 U/L (23-300); Potassium 4.3 mmol/L (3.4-5.0); Prothrombin Time 13.3 Seconds (11.1-14.7); Sodium 137 mmol/L (137-145); Total Protein 7.8 g/dL (6.3-8.2)
[2024-10-05 14:57] LABS: Partial Thromboplastin Time 27.6 Seconds (22.3-36.8)
[2024-10-05 15:06] LABS: Troponin I < 0.012 ng/mL (0.000-0.034)
--- OUTSIDE RECORDS SUMMARY | 2024-10-05 15:08 | XMS_ITS | Clinical Summary ---
Author Organization [facility] Address [address] [place] [address] Care Team Providers Care Security Chief Museum Name Role Phone Blanca Maloney MD Primary Care Provider +1- [phone] Allergies Active Allergy Reactions Criticality Noted Date [...] type 2 diabetes m ellitus without complication ([facility]/HCC [facility]) 11/11/2016 Diverticulosis of large intestine without hemorr [...] age to complete this topic Insurance MED [facility] MEDICARE Care Teams Security Chief Museum Relationship Specialty Start Date End Date Blanca Maloney MD [address] [facility] [address] [place] [address] PCP - General FAMILY PRACTICE 12/16/21
[2024-10-05 16:08] VITALS: O2SAT 99
--- NOTE | 2024-10-05 16:57 | PC.NURSE ---
called lab to add on D Dimer
--- NOTE | 2024-10-05 17:16 | ECG_ITS ---
Test Date: 2024-10-05 17:20:13 Measurements Intervals [place] Rate: 79 P: 21 MS: 185 QRS: 13 QRSD: 78 T: 29 QT: 378 QTc: 434 Interpretive Statements SINUS RHYTHM CONSIDER INFERIOR INFARCT, AGE INDETERMINATE ABNORMAL ECG Compared to ECG 10/05/2024 14:31:25 NO SIGNIFICANT CHANGE Electronically Signed On 10-05-2024 19:16:44 CDT by Richie Brady D.O.
[2024-10-05 17:26] VITALS: BP 105/58; PULSE 77; RESP 15; O2SAT 97
[2024-10-05 17:56] LABS: Troponin I < 0.012 ng/mL (0.000-0.034)
[2024-10-05 18:38] VITALS: BP 118/59; PULSE 77; RESP 19; O2SAT 97
--- NOTE | 2024-10-05 19:04 | ED.CHESTPAIN ---
HPI - Chest Pain General Chief Complaint: Chest Pain Stated Complaint: chest pain Time Seen by Provider: 10/05/24 15:05 History of Present Illness HPI narrative: 69-year-old female with history of hypertension, hypothyroidism status post thyroidectomy, GERD, borderline diabetes. Patient presents to the emergency room with some right-sided chest discomfort. Patient states that she is having some intermittent pain in the right side of her sternal region that radiates occasionally towards her jaw. No cardiac history to her knowledge. Pain not reproducible palpation. No pain with deep inspiration. No recent procedures or mobility. No history of DVT or PE. No leg cramping or leg pain. Was otherwise in her normal state of health. No fever, chills. No traumatic injuries. Related Data Home Medications ?Medication ?Instructions ?Recorded ?Confirmed ?Last Taken ?Type aspirin 81 mg tablet,delayed 81 mg PO DAILY 04/10/19 09/05/24 08/11/21 History release (Adult Low Dose Aspirin) Allergies Allergy/AdvReac Type Severity Reaction Status Date / Time Iodinated Contrast Media AdvReac Intermediate Hives, RED Verified 10/05/24 14:27 FACE Review of Systems Review of Systems: As reviewed above in HPI [facility] Past Medical History Medical History Hematoma and contusion Fall Contusion of head COVID-19 virus infection Encounter for other specified surgical aftercare ROBERT (obstructive sleep apnea) Elevated ALT measurement Bicipital tendinitis of right shoulder Shoulder region pain BALDO (generalized anxiety disorder) Hypothyroidism (acquired) Borderline diabetes mellitus Mixed hyperlipidemia Benign hypertension Surgical History Surgical History H/O umbilical hernia repair 08/12/21 Repair incisional hernia with 6.[address] underlay mesh History of abdominoplasty History of hysterectomy History of appendectomy History of cholecystectomy History of tubal ligation Family History Family History Father Diabetes mellitus Other Family history of malignant neoplasm Hypertension Social History Social History Social History: Smoking packs per day: 0.5 Smoking cigarettes per day: 10.0 Years smoked: 10 Smoking pack-years: 5.00 Smoking status: Former smoker Tobacco type: cigarettes Second hand tobacco smoke exposure: No Smoking end date: 03/07/13 Alcohol intake: current Alcohol use details: Twice a month Substance use: never Substance use type: does not use Lack of Transportation: No Lack of Food: Never True Current Housing: I Have Housing Concerned About Future Housing: No Difficulty Paying Gas/Electric Bills: No Difficulty Paying for Meds: No Currently Unemployed: YES Education: Don't Know Difficulty w/ Childcare or Family Care: No Living arrangements: with family Occupation/Education: retired Gender identity (if verbalized by the patient): Female Sexual Orientation (if Verbalized by the Patient): Straight or Heterosexual Spiritual care concerns: No Exam Narrative: GENERAL: [Well-appearing, well-nourished, and in no acute distress.] HEAD: [Normocephalic, atraumatic.] EYES: [PERRLA and EOMI.] ENT: Nares clear, no rhinorrhea or epistaxis. Mucous membranes moist. NECK: Supple. CHEST: [Clear to auscultation. No respiratory distress.] HEART: [Regular rate and rhythm]. No murmur heard. [Normal peripheral pulses.] ABDOMEN: [Soft, nondistended], [nontender], [No rigidity or guarding] EXTREMITIES: Normal range of motion. [No edema.] SKIN: Warm, dry, no rash. NEURO: [No focal deficits]. Alert and oriented [x3.] PSYCH: [Normal mood and affect.] Course Vital Signs Vital signs: Vital Signs Temperature 36.4 C L 10/05/24 14:27 Pulse Rate 98 10/05/24 14:27 Respiratory Rate 16 10/05/24 14:27 Blood Pressure 119/78 10/05/24 14:27 Pulse Oximetry 99 10/05/24 14:27 Oxygen Delivery Room Air 10/05/24 14:27 Temperature 36.4 C L 10/05/24 14:27 Pulse Rate 76 10/05/24 19:23 Respiratory Rate 19 10/05/24 19:23 Blood Pressure 103/56 L 10/05/24 19:23 Pulse Oximetry 98 10/05/24 19:23 Oxygen Delivery Room Air 10/05/24 16:08 MDM - Chest Pain MDM Narrative Medical decision making narrative: 69-year-old female with history of hypertension, hypothyroidism status post thyroidectomy, GERD, borderline diabetes. Patient presents to the emergency room with some right-sided chest discomfort. Patient states that she is having some intermittent pain in the right side of her sternal region that radiates occasionally towards her jaw. No cardiac history to her knowledge. Pain not reproducible palpation. No pain with deep inspiration. No recent procedures or mobility. No history of DVT or PE. No leg cramping or leg pain. Was otherwise in her normal state of health. No fever, chills. No traumatic injuries. Patient is otherwise well-appearing not any acute distress. She has normal vital signs without any tachycardia, fever, hypoxia significant blood pressure elevations or hypotension. Strong symmetric pulses, clear breath sounds throughout, pain localized to the right-sided sternal wall and occasionally radiates to her jaw but presently asymptomatic and states symptoms have subsided. Patient does have some elevated risk factors for coronary disease including her age and hyperlipidemia. ACS workup was ordered including multiple troponins, EKG, chest x-ray. D-dimer obtained for ruling out thromboembolic disease given her low Wells criteria. Workup shows no significant leukocytosis or anemia. Some hemoconcentration for both values possibly from dehydration. INR normal. D-dimer negative. Electrolytes are unremarkable. Normal creatinine, normal glucose, normal LFTs. Negative troponin. Negative delta troponin. Negative lipase. Chest x-ray shows no infiltrate or effusion. EKG shows sinus rhythm, no signs of ST segment elevations, depressions or inversions. Repeat EKG without any acute findings. Discussed with the patient her largely unremarkable workup and plan of care going forward which will be for outpatient follow-up with her primary care provider and return precautions. Patient felt comfortable with the plan and safe for discharge home at this time. Medical Records Data Attestation: I reviewed the patient's medical records. Lab Data Attestation: I reviewed the patient's lab results. 10/05/24 14:25 10/05/24 14:25 Labs: Lab Results 10/05/24 10/05/24 Range/Units 14:25 17:25 WBC 11.1 H (4.5-10.0) K/mm3 RBC 4.94 (4.2-5.4) M/mm3 Hgb 15.4 H (12.0-15.0) g/dL Hct 46.0 (37.0-47.0) % MCV 93.1 (80-100) fl MCH 31.2 (26-34) pg MCHC 33.5 (32-36) g/dl RDW 12.5 (11.5-14.5) % Plt Count 319 (150-375) k/mm3 MPV 9.7 (7.4-10.4) fl Immature Gran % (Auto) 0.3 (0-0.5) % Neut % (Auto) 59.3 (45.5-73.1) % Lymph % (Auto) 30.7 (18.3-44.2) % Bucks % (Auto) 7.8 (2.6-8.5) % Eos % (Auto) 1.3 (0-4.4) % Baso % (Auto) 0.6 (0.2-1.2) % Lymph # (Auto) 3.40 H (0.9-3.2) K/mm3 Bucks # (Auto) 0.9 H (0.1-0.6) K/mm3 Eos # (Auto) 0.1 (0-0.3) K/mm3 Baso # (Auto) 0.1 (0.0-0.1) K/mm3 Abs Immat Gran (auto) 0.03 (0.00-0.031) K/mm3 Absolute Neuts (auto) 6.6 (1.3-6.7) K/mm3 Absolute Nucleated RBC 0.000 (0.0-0.012) K/mm3 Nucleated RBC % 0.0 (0.0-0.2) % PT 13.3 (11.1-14.7) Seconds INR 1.0 APTT 27.6 (22.3-36.8) Seconds D-Dimer 0.40 (<0.48) ug/mL Sodium 137 (137-145) mmol/L Potassium 4.3 (3.4-5.0) mmol/L Chloride 100 (98-107) mmol/L Carbon Dioxide 24 (22-30) mmol/L Anion Gap 13 H (4-12) mmol/L BUN 17 (7-17) mg/dL Creatinine 0.99 (0.7-1.0) mg/dL Estim Creat Clear Calc 46 ml/min Estimated GFR 55 L (59 - ) Glucose 124 H (65-110) mg/dL Calcium 9.2 (8.4-10.2) mg/dL Total Bilirubin 0.9 (0.2-1.3) mg/dL AST 30 (14-36) U/L ALT 20 (6-35) U/L Alkaline Phosphatase 94 (38-126) U/L Troponin I < 0.012 < 0.012 (0.000-0.034) ng/mL Total Protein 7.8 (6.3-8.2) g/dL Albumin 4.6 (3.5-5.1) g/dL Lipase 68 (23-300) U/L Imaging Data Attestation: I personally reviewed and interpreted this imaging study as follows: My impression: Impressions Chest X-Ray 10/05/24 15:10 IMPRESSION: No focal infiltrate or effusion. Discharge Plan Discharge Clinical Impression: Chest pain Patient Disposition: Home Condition: Stable Instructions: Antibiotic Form, Chest Pain (ED), Chest Wall Pain (ED) Additional Instructions: Your laboratory studies are very reassuring here today. No signs of any cardiac strain or cardiac damage. Blood clot numbers undetectable. No signs of infection or any lung damage or issue with your heart or vessels. Follow-up with regular primary care provider regarding her ER visit. Return with any persistent chest pain, new or worsening concerns or any emergent issues. Patient Language: Danish Prescriptions: No Action aspirin [Adult Low Dose Aspirin] 81 mg tablet,delayed release (DR/EC) 81 mg PO DAILY esomeprazole magnesium 20 mg capsule,delayed release(DR/EC) See Rx Instructions .ROUTE .COMPLEX Qty: 90 1RF Dose Instruction: TAKE 1 CAPSULE BY MOUTH EVERY DAY Rx Instructions: TAKE 1 CAPSULE BY MOUTH EVERY DAY bupropion HCl 100 mg tablet sustained-release 12 hr See Rx Instructions .ROUTE .COMPLEX Qty: 180 1RF Dose Instruction: 100 MG ORALLY TWICE A DAY Rx Instructions: 100 MG ORALLY TWICE A DAY atorvastatin 20 mg tablet See Rx Instructions .ROUTE .COMPLEX Qty: 90 1RF Dose Instruction: TAKE 1 TABLET BY MOUTH EVERY DAY Rx Instructions: TAKE 1 TABLET BY MOUTH EVERY DAY levothyroxine 88 mcg tablet 88 mcg PO DAILY Qty: 90 1RF metformin 500 mg tablet See Rx Instructions .ROUTE .COMPLEX Qty: 180 1RF Dose Instruction: TAKE 1 TABLET BY MOUTH TWICE A DAY Rx Instructions: TAKE 1 TABLET BY MOUTH TWICE A DAY lisinopril-hydrochlorothiazide 20-12.5 mg tablet See Rx Instructions .ROUTE .COMPLEX Qty: 90 1RF Dose Instruction: TAKE 1 TABLET BY MOUTH EVERY DAY Rx Instructions: TAKE 1 TABLET BY MOUTH EVERY DAY potassium chloride 10 mEq capsule, extended release See Rx Instructions .ROUTE .COMPLEX Qty: 90 1RF Dose Instruction: TAKE 1 CAPSULE BY MOUTH EVERY DAY Rx Instructions: TAKE 1 CAPSULE BY MOUTH EVERY DAY Follow-up/Referrals: Rene Plasencia MD [Primary Care Provider] - Time of Disposition: 19:14
--- NOTE | 2024-10-05 19:13 | PC.NURSE ---
Report received from MEY Kamara. Assumed care of patient at this time.
[2024-10-05 19:23] VITALS: BP 103/56; PULSE 76; RESP 19; O2SAT 98
== END 2024-10-05 19:25 | disposition home or self-care (01) ==
PROVIDERS: Emergency Medicine; Emergency Provider Student in an Organized Health Care Education/Training Program; PCP Family Medicine
DX: R07.89 Other chest pain (principal); I10 Essential (primary) hypertension; E78.2 Mixed hyperlipidemia; E89.0 Postprocedural hypothyroidism; R73.03 Prediabetes; K21.9 Gastro-esophageal reflux disease without esophagitis; G47.33 Obstructive sleep apnea (adult) (pediatric); F41.1 Generalized anxiety disorder; Z86.16 Personal history of COVID-19; Z87.891 Personal history of nicotine dependence; Z90.710 Acquired absence of both cervix and uterus; Z90.49 Acquired absence of other specified parts of digestive tract; Z79.82 Long term (current) use of aspirin; Z79.899 Other long term (current) drug therapy; Z79.84 Long term (current) use of oral hypoglycemic drugs; R94.31 Abnormal electrocardiogram [ECG] [EKG]
CPT/HCPCS: 36415; 71046; 80053; 83690; 84484; 85025; 85380; 85610; 85730; 93005; 99284

== ENCOUNTER 2024-11-21 02:27 | Day surgery (SDC) | payer MEDICARE, SELFPAY ==
[2024-11-09 12:10] VITALS: BMI 28.3
--- OUTSIDE RECORDS SUMMARY | 2024-11-21 02:30 | XMS_ITS | Clinical Summary ---
Author Organization [facility] Address [address] [place] [address] Care Team Providers Care Ic Design Manager Name Role Phone Blanca Maloney MD Primary Care Provider +1- [phone] Allergies Active Allergy Reactions Criticality Noted Date [...] type 2 diabetes m ellitus without complication ([facility]/HCC [facility]) 11/11/2016 Diverticulosis of large intestine without [...] PPSV23) 04/04/2020 02/08/2020 COVID-19 Vaccine (4 - 2024-2 6 season) 2024 01/02/2021, 05/09/2020, 04/19/2020 RSV Immunization or 60+ [...] age to complete this topic Insurance MED [facility] MEDICARE Care Teams Ic Design Manager Relationship Specialty Start Date End Date Blanca Maloney MD [address] [facility] [address] [place] [address] PCP - General FAMILY PRACTICE 12/16/21
[2024-11-21 10:19] VITALS: BP 139/68; PULSE 81; RESP 18; TEMP 36.2; O2SAT 98; BMI 28.9
[2024-11-21] MEDS: LACTATED RINGERS 1,000 ML 150 ML IV CONT (10:28)
--- NOTE | 2024-11-21 10:58 | P.PNAN_ITS ---
Anes - Initial Pre Proc Eval Procedure: Operation Date: 11/21/24 11:30 Proposed Procedures p EGD & Diagnostic Colonoscopy - Contreras Perkins MD Date/Time: 11/21/24 10:58 Surgeon: Contreras Perkins MD Pre Op Diagnosis: Polyp of colon, Early satiety, Vomiting, unspecifi Patient Data Age: 69 Gender: F Height: 1.63 m Weight: 76.5 kg Last Vital Signs Temp 97.1 F L 11/21/24 10:19 Pulse 81 11/21/24 10:19 Resp 18 11/21/24 10:19 BP 139/68 11/21/24 10:19 Pulse Ox 98 11/21/24 10:19 O2 Del Method Room Air 11/21/24 10:19 Allergies Allergy/AdvReac Type Severity Reaction Status Date / Time Iodinated Contrast Media AdvReac Intermediate Hives, RED Verified 11/21/24 10:18 FACE Home Medications ?Medication ?Instructions ?Recorded ?Confirmed ?Type aspirin 81 mg tablet,delayed 81 mg PO DAILY 04/10/19 0 11/21/24 History release (Adult Low Dose Aspirin) potassium chloride 10 mEq See Rx Instructions .Route 0 08/07/24 11/21/24 Rx capsule,extended release .COMPLEX #90 caps esomeprazole magnesium 20 mg See Rx Instructions .Rout e 09/05/24 11/21/24 Rx capsule,delayed release .COMPLEX #90 caps bupropion HCl 100 mg tablet,12 hr See Rx Instructions .Route 11/01/24 11/21/24 Rx sustained-release .COMPLEX #180 tabs lisinopril 20 See Rx Instructions .Route 0 11/08/24 11/09/24 Rx mg-hydrochlorothiazide 12.5 mg .COMPLEX #90 tabs tablet metformin 500 mg tablet See Rx Instructions .Route 0 11/08/24 11/21/24 Rx .COMPLEX #180 tabs atorvastatin 20 mg tablet See Rx Instructions .Route 0 11/11/24 11/21/24 Rx .COMPLEX #90 tabs levothyroxine 88 mcg tablet 88 mcg PO DAILY #90 tabs 0 11/11/24 11/21/24 Rx Laboratory Tests 11/21/24 10:30 POC Capillary Glucose 99 mg/dl (65-105) Patient hx anesthesia problems: none Family hx anesthesia problems: none Results Review: All pre-operative results and documents have been reviewed as part of the pre- operative evaluation. [facility] Past Medical History Medical History Hematoma and contusion Fall Contusion of head COVID-19 virus infection Encounter for other specified surgical aftercare ROBERT (obstructive sleep apnea) Elevated ALT measurement Bicipital tendinitis of right shoulder Shoulder region pain BALDO (generalized anxiety disorder) Hypothyroidism (acquired) Borderline diabetes mellitus Mixed hyperlipidemia Benign hypertension Surgical History Surgical History H/O umbilical hernia repair 08/12/21 Repair incisional hernia with 6.[address] underlay mesh History of abdominoplasty History of hysterectomy History of appendectomy History of cholecystectomy History of tubal ligation Family History Family History Father Diabetes mellitus Other Family history of malignant neoplasm Hypertension Social History Social History Social History: Smoking packs per day: 0.5 Smoking cigarettes per day: 10.0 Years smoked: 10 Smoking pack-years: 5.00 Smoking status: Former smoker Tobacco type: cigarettes Second hand tobacco smoke exposure: No Smoking end date: 03/07/13 Alcohol intake: current Alcohol use details: Twice a month Substance use: never Substance use type: does not use Lack of Transportation: No Lack of Food: Never True Current Housing: I Have Housing Concerned About Future Housing: No Difficulty Paying Gas/Electric Bills: No Difficulty Paying for Meds: No Currently Unemployed: YES Education: Don't Know Difficulty w/ Childcare or Family Care: No Living arrangements: alone Occupation/Education: retired Gender identity (if verbalized by the patient): Female Sexual Orientation (if Verbalized by the Patient): Straight or Heterosexual Spiritual care concerns: No Anes - Eval Final PreProcedure Day of Procedure 11/21/24 10:58 Patient weight: overweight Lungs: normal air movement Airway: Mallampati scale class II and special considerations (Upper partial. ) Neurological: alert and oriented Last oral intake: >/= 8 hours ASA classification: III Emergent: no Anesthetic plan: proceed Anesthesia type and monitoring: general GIVS and standard monitoring Results Review: All pre-operative results and documents have been reviewed as part of the pre- operative evaluation. HTN, hyperlipidemia, ROBERT but not able to tolerate CPAP, DM fsbs 99. Active, limited by hip pain, no cp or sob w activity. Informed Consent: The patient's anesthetic plan and its attendant risks and benefits were discussed with the patient/family/POA. Questions were solicited and answers provided to the satisfaction of the patient/family/POA.
--- NOTE | 2024-11-21 11:13 | P.HP_ITS ---
History of Present Illness History of Present Illness Consent: Risks, benefits, and alternatives have been discussed and questions answered. Patient agrees to proceed with procedure. Chief complaint: Polyp of colon, Early satiety, Vomiting, unspecifi Narrative: Naomy Cano is a 69 year old female here for first egd, h/o gerd, also colon polyp Review of Systems Review of Systems: All systems reviewed & are unremarkable except as noted in HPI and below PMFSH Past Medical History Medical History (Updated 11/21/24 @ 11:13 by Contreras Perkins MD) Colon polyp GERD (gastroesophageal reflux disease) Hematoma and contusion Fall Contusion of head COVID-19 virus infection Encounter for other specified surgical aftercare ROBERT (obstructive sleep apnea) Elevated ALT measurement Bicipital tendinitis of right shoulder Shoulder region pain BALDO (generalized anxiety disorder) Hypothyroidism (acquired) Borderline diabetes mellitus Mixed hyperlipidemia Benign hypertension Surgical History Surgical History H/O umbilical hernia repair 08/12/21 Repair incisional hernia with 6.[address] underlay mesh History of abdominoplasty History of hysterectomy History of appendectomy History of cholecystectomy History of tubal ligation Family History Family History Father Diabetes mellitus Other Family history of malignant neoplasm Hypertension Social History Social History Social History: Smoking packs per day: 0.5 Smoking cigarettes per day: 10.0 Years smoked: 10 Smoking pack-years: 5.00 Smoking status: Former smoker Tobacco type: cigarettes Second hand tobacco smoke exposure: No Smoking end date: 03/07/13 Alcohol intake: current Alcohol use details: Twice a month Substance use: never Substance use type: does not use Lack of Transportation: No Lack of Food: Never True Current Housing: I Have Housing Concerned About Future Housing: No Difficulty Paying Gas/Electric Bills: No Difficulty Paying for Meds: No Currently Unemployed: YES Education: Don't Know Difficulty w/ Childcare or Family Care: No Living arrangements: alone Occupation/Education: retired Gender identity (if verbalized by the patient): Female Sexual Orientation (if Verbalized by the Patient): Straight or Heterosexual Spiritual care concerns: No Meds Home Medications and Allergies Home Medications ?Medication ?Instructions ?Recorded ?Confirmed ?Type aspirin 81 mg tablet,delayed 81 mg PO DAILY 04/10/19 0 11/21/24 History release (Adult Low Dose Aspirin) potassium chloride 10 mEq See Rx Instructions .Route 0 08/07/24 11/21/24 Rx capsule,extended release .COMPLEX #90 caps esomeprazole magnesium 20 mg See Rx Instructions .Rout e 09/05/24 11/21/24 Rx capsule,delayed release .COMPLEX #90 caps bupropion HCl 100 mg tablet,12 hr See Rx Instructions .Route 11/01/24 11/21/24 Rx sustained-release .COMPLEX #180 tabs lisinopril 20 See Rx Instructions .Route 0 11/08/24 11/09/24 Rx mg-hydrochlorothiazide 12.5 mg .COMPLEX #90 tabs tablet metformin 500 mg tablet See Rx Instructions .Route 0 11/08/24 11/21/24 Rx .COMPLEX #180 tabs atorvastatin 20 mg tablet See Rx Instructions .Route 0 11/11/24 11/21/24 Rx .COMPLEX #90 tabs levothyroxine 88 mcg tablet 88 mcg PO DAILY #90 tabs 0 11/11/24 11/21/24 Rx Allergies Allergy/AdvReac Type Severity Reaction Status Date / Time Iodinated Contrast Media AdvReac Intermediate Hives, RED Verified 11/21/24 10:18 FACE Vital Signs Vital Signs - 24 hr 11/21/24 10:19 Temperature 97.1 F L Pulse Rate 81 Respiratory Rate 18 Blood Pressure 139/68 Pulse Oximetry 98 Oxygen Delivery Room Air Exam Const: General: comfortable and no acute distress HENMT: Face/Nose/Sinus: Normal nares present Eyes: General: appearance normal, both eyes and all related structures Neck: Neck: no JVD Resp: Auscultation: clear to auscultation bilaterally Cardio: Rate: regular rate Rhythm: regular rhythm GI: Inspection: non-distended GI Palp: Yes Soft to palpation Skin: General skin exam: normal color Neuro: Speech: normal speech Extrem: General: normal to inspection Psych: Mental Status: mental status grossly normal Assessment and Plan Assessment and plan (1) GERD (gastroesophageal reflux disease): Code(s): K21.9 - Gastro-esophageal reflux disease without esophagitis Status: Acute Assessment and Plan: egd (2) Colon polyp: Code(s): K63.5 - Polyp of colon Status: Acute Assessment and Plan: colonoscopy
--- NOTE | 2024-11-21 11:22 | S_PTH ---
PATIENT: Naomy Cano LOC: [facility]#:[id number] AGE/SX: 69/F ROOM: RE11/21/[address]: Contreras Perkins MD : [id number] BED: DIS: 11/21/2024 SPEC #: [id number] RECD: 11/21/24 13:13 STATUS: DESTINY RELucas #: [id number] CARLITO: 11/21/24 11:[address]: Contreras Perkins DEPT: [facility] Surgical RECD BY: Mell Feliciano ENTERED: 11/21/24 13:15 SP TYPE: Surgical OTHR DR: Rene Plasencia MD Tissues: A - Gastric Biopsy B - Esophageal Biopsy Procedures: Hematoxylin and Eosin Stain Gross and Microscopic Level 4
[2024-11-21 11:37] VITALS: BP 114/57; PULSE 72; RESP 18; O2SAT 98
[2024-11-21 11:47] VITALS: BP 113/58; PULSE 73; RESP 18; O2SAT 98
[2024-11-21 11:57] VITALS: BP 112/58; PULSE 70; RESP 17; O2SAT 97
== END 2024-11-21 12:09 | disposition home or self-care (01) ==
PROVIDERS: PCP Family Medicine; Referring Provider Physician Assistant Medical; Visit Provider Internal Medicine Gastroenterology
PROC: 0DJ08ZZ Inspection of Upper Intestinal Tract, Via Natural or Artificial Opening Endoscopic (ICD-10-PCS; CPT 45378; principal; 2024-11-21 11:30)
DX: Z12.11 Encounter for screening for malignant neoplasm of colon (principal); K64.8 Other hemorrhoids; K57.30 Diverticulosis of large intestine without perforation or abscess without bleeding; K29.50 Unspecified chronic gastritis without bleeding; K21.00 Gastro-esophageal reflux disease with esophagitis, without bleeding; E03.9 Hypothyroidism, unspecified; E78.2 Mixed hyperlipidemia; I10 Essential (primary) hypertension; G47.33 Obstructive sleep apnea (adult) (pediatric); F41.9 Anxiety disorder, unspecified; E11.9 Type 2 diabetes mellitus without complications; Z79.82 Long term (current) use of aspirin; Z79.84 Long term (current) use of oral hypoglycemic drugs; Z98.890 Other specified postprocedural states; Z90.49 Acquired absence of other specified parts of digestive tract; Z98.51 Tubal ligation status; Z87.891 Personal history of nicotine dependence; Z86.0100 Personal history of colon polyps, unspecified; Z80.0 Family history of malignant neoplasm of digestive organs; Z80.1 Family history of malignant neoplasm of trachea, bronchus and lung
CPT/HCPCS: 43239; G0105; 82948; 88305; J2704; J7120

== ENCOUNTER 2024-12-18 10:01 | Outpatient (CLI) | payer MEDICARE, SELFPAY ==
--- NOTE | ~2024-12-18 | MM_ITS ---
EXAMINATION: MM screening linh BI w [facility]ell HISTORY: Screening TECHNIQUE: Craniocaudal and mediolateral oblique 3-D tomosynthesis images were obtained and synthetic 2-D images were generated. CAD analysis was submitted and interpreted. COMPARISON: 08/23/2022 BREAST PARENCHYMAL COMPOSITION: There are scattered areas of fibroglandular density. FINDINGS: There is no evidence of suspicious mass, calcification, or architectural distortion to suggest malignancy. There has been no suspicious interval change. IMPRESSION: 1. No mammographic evidence of malignancy. Recommend routine screening mammography in one year. BI-RADS Category 2: Benign finding(s) Reviewed, dictated and finalized at location Q. IMPRESSION: 1. No mammographic evidence of malignancy. Recommend routine screening mammogra phy in one year. BI-RADS Category 2: Benign finding(s)
== END 2024-12-18 10:02 | disposition home or self-care (01) ==
LOC: MICIMG 10:02
PROVIDERS: PCP Family Medicine; Visit Provider Family Medicine
DX: Z12.31 Encounter for screening mammogram for malignant neoplasm of breast (principal)
CPT/HCPCS: 77063; 77067